=== PATIENT | female | born 1940 | race Caucasian/White ===

== ENCOUNTER 2018-11-24 11:21 | Inpatient (IN) | payer MEDICAID, MEDICARE ==
[~2018-11-24] VITALS: Ht 160 cm; Wt 63.9 kg
--- NOTE | 2018-11-24 15:06 | ERD ---
ER Documentation Chief Complaint Chief Complaint NAUSEA, VOMITING, DIARRHEA, PT HAD PET SCAN 3 DAYS AGO, HX OF BREAST CA HPI The patient is a 78-year-old female, presenting to the ER because of acute vomiting and diarrhea for 3 days, denies hematemesis/hematochezia, complains of vague abdominal pain, denies fever, chills, neck pain, chest pain, dyspnea. She does not smoke or drink she had a PET scan 3 days ago due to recently diagnosed with right breast carcinoma. She does not smoke or drink Past medical history: Left breast carcinoma, hypertension, diabetes mellitus Past surgical history: Left breast cyst, , cholecystectomy ROS All systems reviewed and are negative except as per history of present illness. Medications Home Meds Reported Medications Losartan Potassium* (Losartan Potassium*) 100 Mg Tablet, 100 MG PO DAILY, TAB 11/24/18 Metformin Hcl* (Metformin Hcl*) 850 Mg Tablet, 850 MG PO WITH BREAKFAST DINNE, #60 TAB 11/24/18 Allergies Allergies: Coded Allergies: No Known Allergy (Unverified , 11/24/18) Physical Exam Vitals Vital Signs Date Temp Pulse Resp B/P (MAP) Pulse Ox O2 O2 Flow FiO2 Time Delivery Rate 11/24/18 81 14 168/78 100 Room Air 18:50 (108) 11/24/18 83 16 179/86 100 Room Air 16:24 (117) 11/24/18 97.1 89 18 173/108 99 11:27 (129) Physical Exam Const: No acute distress.Dehydrated Head: Atraumatic. Eyes: Normal Conjunctiva. ENT: Normal External Ears, Nose and Mouth. Neck: Full range of motion. No meningismus. Resp: Clear to auscultation bilaterally. Cardio: Regular rate and rhythm. Abd: Soft, non distended, normal bowel sounds, non tender. Skin: No petechiae or rashes. Back: No midline or flank tenderness. Ext: No cyanosis, or edema. Neur: Awake and alert. No focal deficit Psych: Normal Mood and Affect. Result Diagram: 11/24/18 1548 11/24/18 1548 Results 24 hrs Laboratory Tests Test 11/24/18 15:48 11/24/18 16:26 White Blood Count 6.3 10^3/ul Red Blood Count 3.61 10^6/ul Hemoglobin 11.8 g/dl Hematocrit 32.2 % Mean Corpuscular Volume 89.2 fl Mean Corpuscular Hemoglobin 32.7 pg Mean Corpuscular Hemoglobin Concent 36.6 g/dl Red Cell Distribution Width 12.0 % Platelet Count 182 10^3/UL Mean Platelet Volume 9.5 fl Immature Granulocytes % 0.500 % Neutrophils % 83.9 % Lymphocytes % 10.0 % Monocytes % 5.6 % Eosinophils % 0.0 % Basophils % 0.0 % Nucleated Red Blood Cells % 0.0 /100WBC Immature Granulocytes # 0.030 10^3/ul Neutrophils # 5.3 10^3/ul Lymphocytes # 0.6 10^3/ul Monocytes # 0.4 10^3/ul Eosinophils # 0.0 10^3/ul Basophils # 0.0 10^3/ul Nucleated Red Blood Cells # 0.0 10^3/ul Sodium Level 117 mmol/L Potassium Level 5.3 mmol/L Chloride Level 86 mmol/L Carbon Dioxide Level 14 mmol/L Anion Gap 17 Blood Urea Nitrogen 55 mg/dl Creatinine 6.08 mg/dl Est Glomerular Filtrat Rate mL/min mL/min Glucose Level 262 mg/dl Calcium Level 8.6 mg/dl Total Bilirubin 0.2 mg/dl Direct Bilirubin 0.00 mg/dl Indirect Bilirubin 0.2 mg/dl Aspartate Amino Transf (AST/SGOT) 27 IU/L Alanine Aminotransferase (ALT/SGPT) 13 IU/L Alkaline Phosphatase 58 IU/L Total Protein 7.6 g/dl Albumin 3.9 g/dl Globulin 3.70 g/dl Albumin/Globulin Ratio 1.05 Lipase 598 U/L Bedside Urine pH (LAB) 6.0 Bedside Urine Protein (LAB) 3+ Bedside Urine Glucose (UA) 0.25% Bedside Urine Ketones (LAB) Negative Bedside Urine Blood Trace-lysed Bedside Urine Nitrite (LAB) Negative Bedside Urine Leukocyte Esterase (L Negative Current Medications Medications Dose Sig/Figueroa Start Time Status Last (Trade) Ordered Route PRN Stop Time Admin Dose Reason Admin Ondansetron 4 mg ONCE STAT 11/24/18 DC 11/24/18 HCl (Zofran IV 15:32 16:23 Inj) 11/24/18 15:36 Sodium 500 ml @ Q1H ONCE 11/24/18 DC 11/24/18 Chloride 500 mls/hr IV 17:00 16:55 2/11/19 17:59 Procedures/MDM MEDICAL MAKING DECISION: The patient is a 78-year-old female, presenting with acute vomiting and diarrhea, acute hyponatremia, acute kidney injury, acute hyperglycemia, anemia, acute hyperkalemia, acute dehydration. She was treated with Zofran formula IV for nausea, 500 normal saline IV for acute dehydration and acute hyponatremia with good response. The differential diagnoses considered include but are not limited to acute de hydration, acute electrolyte imbalance, acute pneumonia, SIADH, HHS, DKA Departure Diagnosis: Primary Impression: Hyponatremia Additional Impressions: Vomiting and diarrhea BELA (acute kidney injury) Hyperglycemia Hyperkalemia Dehydration Anemia Condition: Stable Comments I discussed the findings with the patient. I discussed the patient with the hospitalist Dr. Majano at 5:05 PM. who was made aware of the lab, the treatment, the patient condition. The patient is admitted to [facility] Disclaimer: Inadvertent spelling and grammatical errors are likely due to EHR/di ctation software use and do not reflect on the overall quality of patient care. Also, please note that the electronic time recorded on this note does not necessarily reflect the actual time of the patient encounter. KYLEIGH MOE MD Nov 24, 2018 15:06
[2018-11-24] MEDS ORDERED: ONDANSETRON 4 MG INJ IV STA (15:32)
[2018-11-24] MEDS ORDERED: METF850T13 PO (16:17)
[2018-11-24] MEDS ORDERED: LOSA100T15 PO (16:17)
[2018-11-24] MEDS ORDERED: SOD CHLORIDE 0.9% 500 ML IV ONE (17:00)
[2018-11-24] MEDS ORDERED: GLUCAGON 1 MG INJ IM PRN (20:00)
[2018-11-24] MEDS ORDERED: HYDROCODONE/APAP (5/325) TAB PO PRN (20:00)
[2018-11-24] MEDS ORDERED: GLUCOSE GEL 15 GRAM TUBE PO PRN ×2 (20:00)
[2018-11-24] MEDS ORDERED: GLUCOSE GEL 15 GRAM TUBE BUCCAL PRN (20:00)
[2018-11-24] MEDS ORDERED: ONDANSETRON 4 MG INJ IV PRN (20:00)
[2018-11-24] MEDS ORDERED: ACETAMINOPHEN 325 MG TAB PO PRN (20:00)
[2018-11-24] MEDS ORDERED: NACL 0.9% 3 ML SYG IV SCH (20:00)
[2018-11-24] MEDS ORDERED: DEXTROSE 50% 50 ML SYRINGE IV PRN ×2 (20:00)
[2018-11-24] MEDS: SOD CHLORIDE 0.9% 1,000 ML IV SCH (20:00)
--- NOTE | 2018-11-24 20:11 | HP ---
Date/Time of Note Date/Time of Note DATE: 11/24/18 TIME: 20:11 Assessment/Plan VTE Prophylaxis Pharmacological prophylaxis: other Lines/Catheters IV Catheter Type (from [facility]): Saline Lock Urinary Cath still in place: No Assessment/Plan Hospital Course Objective Physical exam General: Patient is laying in bed and answers questions appropriately Mentation: Patient is alert and oriented 4, Head: Normocephalic atraumatic Eyes: EOMI, pupils reactive to light Neck: Supple, nontender, midline Respiratory: Clear to auscultation bilaterally Cardiovascular: regular rate, no obvious murmurs Gastrointestinal: non-tender to palpation, bowel sounds heard. Neurological: Moves all extremities spontaneously Skin: Left breast mildly tender, postsurgical changes Assessment and plan Nausea, vomiting, diarrhea, associated abdominal pain -Likely secondary to chemotherapy medication as all symptoms began right after the injection -Most issues appear to have subsided -Fecal culture for diarrhea -No more abdominal pain however due to elevated lipase and questionable abdominal pain while she was throwing up in the past previous days, will get CT Hyponatremia -Secondary to above nausea, vomiting, diarrhea with decreased p.o. intake -Nephrology consulted -Fluid challenge with NS -Repeat labs soon Hyperkalemia -Mild elevation, likely secondary to renal dysfunction -Nephrology consulted Acute kidney injury versus chronic kidney disease -Patient and patient's family state that they do not know of any long-standing chronic kidney issues, patient likely has a acute renal failure due to volume depletion -Nephrology consulted -Fluid challenge with NS for now -crawford Elevated lipase -Very difficult to diagnose this is pancreatitis as patient does not have abdominal pain at this time -Likely secondary to other GI issues including acute severe intractable vomiting and nausea -Monitor for abdominal pain -CT pending Anemia -Mild, no signs of GI bleed Diabetes mellitus -Patient on home metformin, will do insulin sliding scale while here Hypertension -Hold patient's home losartan as this may exacerbate patient's BELA, Disposition -Most of patient's issues seem to be due secondary to vomit depletion secondary to chemotherapy nausea vomiting and diarrhea, will volume hydrate, nephrology has been consulted, Dr. Florez. Patient will start on clears and increase as tolerated. Result Diagram: 11/24/18 1548 11/24/18 1548 Results 24hrs Laboratory Tests Test 11/24/18 15:48 11/24/18 16:26 White Blood Count 6.3 Red Blood Count 3.61 L Hemoglobin 11.8 L Hematocrit 32.2 L Mean Corpuscular Volume 89.2 Mean Corpuscular Hemoglobin 32.7 Mean Corpuscular Hemoglobin Concent 36.6 Red Cell Distribution Width 12.0 Platelet Count 182 Mean Platelet Volume 9.5 Immature Granulocytes % 0.500 H Neutrophils % 83.9 H Lymphocytes % 10.0 L Monocytes % 5.6 Eosinophils % 0.0 Basophils % 0.0 Nucleated Red Blood Cells % 0.0 Immature Granulocytes # 0.030 Neutrophils # 5.3 Lymphocytes # 0.6 L Monocytes # 0.4 Eosinophils # 0.0 Basophils # 0.0 Nucleated Red Blood Cells # 0.0 Sodium Level 117 *L Potassium Level 5.3 H Chloride Level 86 L Carbon Dioxide Level 14 L Anion Gap 17 H Blood Urea Nitrogen 55 H Creatinine 6.08 H Est Glomerular Filtrat Rate mL/min Glucose Level 262 H Calcium Level 8.6 Total Bilirubin 0.2 Direct Bilirubin 0.00 Indirect Bilirubin 0.2 Aspartate Amino Transf (AST/SGOT) 27 Alanine Aminotransferase (ALT/SGPT) 13 Alkaline Phosphatase 58 Total Protein 7.6 Albumin 3.9 Globulin 3.70 H Albumin/Globulin Ratio 1.05 Lipase 598 H Bedside Urine pH (LAB) 6.0 Bedside Urine Protein (LAB) 3+ H Bedside Urine Glucose (UA) 0.25% H Bedside Urine Ketones (LAB) Negative Bedside Urine Blood Trace-lysed H Bedside Urine Nitrite (LAB) Negative Bedside Urine Leukocyte Esterase (L Negative HPI/ROS Admit Date/Time Admit Date/Time Hx of Present Illness Patient is a elderly female with past medical history significant for hypertension, diabetes mellitus, right breast carcinoma currently on chemotherapy who presented to [facility] for complaints of nausea vomiting and diarrhea. Patient recently received a shot of chemotherapy medication approximately 3 days ago and has subsequently developed an intractable nausea, vomiting, diarrhea type issue. Patient has not been able to tolerate p.o. very well due to these issues however it is appear to have subsided. Patient states that her last full urinary void was yesterday except for today when she produced a little bit for the laboratory, her last diarrhea was also yesterday. Her last nausea vomiting was also yesterday. Currently patient has no abdominal pain and stated that her abdomen is only painful when she is vomiting. Patient appears comfortable and states that she does not have any shortness of breath, chest pain, headache, nausea, vomiting, diarrhea at this time. Patient states that she does have chronic left breast pain due to her cancer and multiple surgeries in that area. PMH/Family/Social Past Medical History Medications Current Medications Sodium Chloride 1,000 ml @ 70 mls/hr [id number] IV Last administered on 11/24/18at 20:00; Admin Dose 70 MLS/HR; Start 11/24/18 at 19:44 IV Flush (NS 3 ml) 3 ml PER PROTOCOL IV ; Start 11/24/18 at 20:00 Ondansetron HCl (Zofran Inj) 4 mg Q6H PRN IV NAUSEA/VOMITING; Start 11/24/18 at 20:00 Acetaminophen (Tylenol Tab) 650 mg Q6H PRN PO .PAIN 1-3 OR TEMP; Start 11/24/18 at 20:00 Acetaminophen/ Hydrocodone Bitart ([place] (5/325)) 1 tab Q6H PRN PO .PAIN 4-6; Start 11/24/18 at 20:00 Famotidine (Pepcid Iv) 20 mg HS IV ; Start 11/24/18 at 21:00 Diagnostic Test (Pha) (Accu-Chek) 1 ea 02 XX ; Start 11/25/18 at 02:00 Insulin Aspart (Novolog Insulin Pen) NOVOLOG *MILD* ALGORITHM Q6 SC ; Start 11/25/18 at 00:00 Labetalol HCl (Labetalol) 10 mg Q4H PRN IV sbp >160; Start 11/24/18 at 20:00 Miscellaneous Information 1 ea NOTE XX ; Start 11/24/18 at 20:00 Glucose (Glutose) 15 gm Q15M PRN PO DECREASED GLUCOSE; Start 11/24/18 at 20:00 Glucose (Glutose) 22.5 gm Q15M PRN PO DECREASED GLUCOSE; Start 11/24/18 at 20:00 Dextrose (D50w Syringe) 25 ml Q15M PRN IV DECREASED GLUCOSE; Start 11/24/18 at 20:00 Dextrose (D50w Syringe) 50 ml Q15M PRN IV DECREASED GLUCOSE; Start 11/24/18 at 20:00 Glucagon (Glucagen) 1 mg Q15M PRN IM DECREASED GLUCOSE; Start 11/24/18 at 20:00 Glucose (Glutose) 15 gm Q15M PRN BUCCAL DECREASED GLUCOSE; Start 11/24/18 at 20:00 Coded Allergies: No Known Allergy (Unverified , 11/24/18) Social History Smoking Status: Never smoker Exam/Review of Systems Vital Signs Vitals Vital Signs Date Temp Pulse Resp B/P (MAP) Pulse Ox O2 O2 Flow FiO2 Time Delivery Rate 11/24/18 81 14 168/78 100 Room Air 18:50 (108) 11/24/18 97.1 11:27 RANDA PANDA Nov 24, 2018 20:11
[2018-11-24] MEDS ORDERED: FAMOTIDINE 20 MG INJ IV SCH (21:00)
[2018-11-24] MEDS ORDERED: HEPARIN 25000 UNITS/250 ML 250 ML IV SCH (22:00)
[2018-11-24] MEDS ORDERED: HEPARIN 1000 UNITS/ML 10 ML INJ IV PRN (22:00)
[2018-11-24] MEDS ORDERED: HEPARIN 1000 UNITS/ML 10 ML INJ IV ONE (22:00)
[2018-11-24 22:45] VITALS: BP 157/80; PULSE 75; RESP 16; Ht 160 cm; Wt 63.9 kg
[2018-11-24 22:48] VITALS: PULSE 77
[2018-11-24] MEDS ORDERED: ATORVASTATIN 80 MG TAB PO ONE (23:00)
[2018-11-24] MEDS ORDERED: ASPIRIN 81 MG TAB PO ONE (23:00)
[2018-11-25] VITALS (12 sets, daily range): BP systolic 147–166; BP diastolic 62–81; PULSE 64–82; RESP 16–18
[2018-11-25] MEDS ORDERED: SODIUM POLYSTYRENE 15 GM KIT (POWDER + SORBITOL) PO ONE (01:00)
[2018-11-25] MEDS: INSULIN ASPART [NOVOLOG] 3 ML PEN SC SCH ×5 (01:06→22:02)
[2018-11-25] MEDS: ACCU-CHEK XX SCH (02:00)
--- NOTE | 2018-11-25 08:58 | CONS ---
DATE OF ADMISSION: 11/24/2018 DATE OF CONSULTATION: 11/25/2018 TYPE OF CONSULTATION: Nephrology. REASON FOR CONSULTATION: Acute kidney injury and hypernatremia. PHYSICIAN REQUESTING CONSULT: Dr. Carrillo. HISTORY OF PRESENT ILLNESS: This is a 78-year-old female with a past medical history of chronic kidn ey disease, unknown baseline creatinine, history of hypertension, history of diabetes, history of rec ently diagnosed right breast carcinoma who presents [facility] with complaints o f nausea, vomiting, and diarrhea. The patient apparently was recently diagnosed with breast cancer, had a recent PET CT without unknown results. The patient did receive apparently chemotherapy approxi mately 3 days ago and nausea, vomiting, diarrhea. As a result, she came into the emergency room for evaluation. Upon arrival, the patient noted to have a sodium of 117, potassium 5.3, BUN 55, creatini ne 6.08. The patient in the emergency room was given IV fluids and admitted to telemetry for evaluat ion. The patient was also given Kayexalate as well as placed on heparin drip for elevated troponin. In terms of patient's renal history, I spoke with the patient's granddaughter, Concetta, who informed me that her grandmother, the patient, has had chronic kidney disease for many years, presumed to be due to her diabetes and hypertension. The patient previously was told in [place] that she may eventually need dialysis. The patient recently had a surgery and blood work done 2 to 3 weeks ago and was also performed of poor kidney function, but actual creatinine level and/or EGFR was not known to the [facility]. There have been no reports of any hemoptysis, hematemesis or hematochezia. The patient h as been feeling more confused lately as stated above. Please note, the patient did receive contrast study approximately 3 days ago per the patient's family for CT imaging. PAST MEDICAL HISTORY: History of hypertension, diabetes, history of chronic kidney disease, history of breast cancer. PAST SURGICAL HISTORY: Status post breast surgery. FAMILY HISTORY: No family history of kidney disease. SOCIAL HISTORY: She does not drink, smoke or do drugs. MEDICATIONS: The patient's medications have been reviewed. REVIEW OF SYSTEMS: Unable to do adequate review of systems. The patient is confused. Pertinent pos itives as stated in HPI, obtained by reviewing medical records, speaking to patient's family. PHYSICAL EXAMINATION: VITAL SIGNS: Blood pressure is 151/73, respirations 18, pulse 69, temperature 98.8. HEENT: Head is normocephalic. NECK: Supple. HEART: Regular rate. LUNGS: Show diminished breath sounds at the base. ABDOMEN: Soft, nontender to palpation without rebound or guarding. EXTREMITIES: Negative for clubbing, cyanosis, no edema. DERMATOLOGIC: No rashes. MUSCULOSKELETAL: No joint effusion. NEUROLOGIC: No. No focal deficits. LABORATORY DATA: Shows sodium 121, BUN 58, creatinine 6.90, magnesium 1.6. White count 5.9, hemoglo bin 10.5, platelet count 157. IMAGING STUDIES: The patient's renal ultrasound shows increased echogenicity consistent with medical renal disease, no hydronephrosis. CT scan of abdomen and pelvis shows increased attenuation within the gallbladder, abnormal changes, left breast parenchyma, renal atrophy and chest x-ray was reviewed . Urinalysis was reviewed, showed no hematuria, +2 proteinuria. ASSESSMENT AND PLAN: This is a 78-year-old female who presents with: 1. Oliguric acute kidney injury on top of chronic kidney disease with unknown baseline creatinine. Etiology of acute kidney injury is possibly multifactorial, possible contrast-associated nephropathy due to recent CT imaging, hemodynamics secondary to volume depletion from gastrointestinal losses, qu estionable nephrotoxicity from chemotherapy. The patient's renal ultrasound shows increased echogeni city consistent with chronic kidney disease. No renal obstruction. Urinalysis was reviewed, no evid ence of active sediment. Plan at this point is to continue the patient on IV hydration. We will mon itor I's and O's and renal function closely. The patient does have mild uremic signs and symptoms. Please note I did speak with the patient's family about the possibility of dialysis. They are trying to obtain PET scan and imaging studies to determine if the patient has metastatic disease in which c ase they may pursue comfort measures. We would otherwise continue current treatment plan, supportive care, renally dose all medicines. 2. Hypernatremia, etiology is secondary to acute kidney injury causing decreased free water urinary excretion. The patient will be placed on free water restriction, monitor sodium levels closely to en sure correction of no more than 6 to 8 mEq in a 24-hour period. 3. Metabolic acidosis secondary to acute kidney injury. Continue to monitor. May consider bicarbon ate therapy. 4. Anemia. Continue to monitor hemoglobin and hematocrit levels. 5. Mineral bone disorder, monitor calcium and phosphorus levels. 6. Hypomagnesemia. We will replete with magnesium sulfate. 7. Encephalopathy, likely due to underlying uremia. Continue to monitor. Continue to treat acute k idney injury as stated above. The patient may require dialysis. 8. Nausea, vomiting, and abdominal pain. Etiology may be secondary to chemotherapy versus uremia. Continue to monitor. Continue IV hydration. 9. Hyperkalemia secondary to acute kidney injury, improved. The patient is status post Kayexalate. Continue to monitor. 10. Elevated lipase, hyperlipasemia. This may be secondary to acute kidney injury. Continue to mon itor. CT scan was reviewed. 11. Diabetes. Continue current insulin regimen. 12. History of hypertension. Continue medical management. Thank you, Dr. Carrillo, for this interesting consult. It will be a pleasure to follow the patient with reji gusman throughout the hospital course. Dictated By: LYNNE RHODES DO NR/NTS Conf#: [id number] DID#: [id number] CC: OLIVE ALBRECHT MD; DOMINGO ARRIOLA MD;*EndCC*
[2018-11-25] MEDS ORDERED: ASPIRIN 81 MG TAB PO SCH (09:00)
[2018-11-25] MEDS: SOD CHLORIDE 0.9% 1,000 ML IV SCH ×2 (10:23→23:44)
--- NOTE | 2018-11-25 11:04 | PN ---
Date/Time of Note Date/Time of Note DATE: 11/25/18 TIME: 11:04 Assessment/Plan VTE Prophylaxis Risk score (from Nsg)>0 risk: 5 SCD applied (from Nsg): Yes Pharmacological prophylaxis: heparin Lines/Catheters IV Catheter Type (from Nrsg): Saline Lock Urinary Cath still in place: Yes Reason Cath still needed: other (indicate) Assessment/Plan Hospital Course SUBJECTIVE: Lying in bed, having loose bowel movements x3 today. No abdominal pain, vomiting. Having nausea. OBJECTIVE: Vital signs-see below PHYSICAL EXAM: Constitutional: Elderly female, lying in bed comfortably. Psych: nl mood/affect, no complaints Head: atraumatic, normocephalic Eyes: nl conjunctiva, nl sclera ENMT: mucosa pink and moist, nl external ears & nose Neck: non-tender, supple Respiratory: clear to auscultation, normal air movement Cardiovascular: nl pulses, regular rate and rhythm Gastrointestinal: non-tender, soft, bowel sounds active in all 4 quadrants. Musculoskeletal/extremities: nl extremities to inspection, motor strength equal bilaterally, no focal deficit. Normal pulses,no cyanosis, no edema. Neurological: Alert oriented 3,nl speech, nl strength Skin: +Left breast cancer. nl turgor ASSESSMENT/PLAN: 78-year-old female with recently diagnosed left breast cancer, scheduled for surgery with Dr. Bettencourt on Saturday, here with sudden onset of N/V/abd cramps/diarrhea since Saturday after she received a PET scan, found to have acute kidney injury. 1.N/V/Diarrhea-most likely toxic etiology with uremia -No further abdominal pain. -Continue fluid challenge -Potonix,PRN Zofran -Stool for studies 2. Acute kidney injury versus CKD -Patient received contrast for PET scan, likely culprit of acute kidney injury. -Management per nephrology, likely needing hemodialysis if renal function does not improve. 3. DMII -A1c noted -stable glycemic trends. -cont.insulin 4. 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 Anemia of chronic illness -Stable H&H, monitor 6. Left breast cancer -Patient is scheduled for surgical intervention on Saturday with Dr. Batista 7. Troponin leak, in light of BELA -Cardiology has been consulted. Patient with no chest pain, no EKG changes. Troponin trended down=> DC heparin drip and start subcu prophylaxis dose. -Continue aspirin/Statin prophylaxis. DVT prophylaxis: Subcu heparin PUD prophylaxis: Protonix CODE STATUS: Full code Diet: Clear diet. Disposition: Continue current management. Await for clinical improvement. Follow-up with nephrology recommendations. Patient was seen in collaboration w/ Result Diagram: 11/25/18 0337 11/25/18 0531 Results 24hrs Laboratory Tests Test 11/24/18 15:48 11/24/18 16:26 11/24/18 20:46 11/24/18 22:23 Sodium Level 117 *L Potassium Level 5.3 H Chloride Level 86 L Carbon Dioxide 14 L Level Anion Gap 17 H Blood Urea Nitrogen 55 H Creatinine 6.08 H Est Glomerular Filtrat Rate mL/min Glucose Level 262 H Calcium Level 8.6 Phosphorus Level 6.4 H Total Bilirubin 0.2 Direct Bilirubin 0.00 Indirect Bilirubin 0.2 Aspartate Amino 27 Transf (AST/SGOT) Alanine 13 Aminotransferase (A LT/SGPT) Alkaline 58 Phosphatase Total Protein 7.6 Albumin 3.9 Globulin 3.70 H Albumin/Globulin 1.05 Ratio Bedside Urine pH 6.0 (LAB) Bedside Urine 3+ H Protein (LAB) Bedside Urine 0.25% H Glucose (UA) Bedside Urine Negative Ketones (LAB) Bedside Urine Blood Trace-lysed H Bedside Urine Negative Nitrite (LAB) Bedside Urine Negative Leukocyte Esterase (L Troponin I 0.697 *H White Blood Count 5.9 Red Blood Count 3.21 L Hemoglobin 10.6 L Hematocrit 29.1 L Mean Corpuscular 90.7 Volume Mean Corpuscular 33.0 Hemoglobin Mean Corpuscular 36.4 Hemoglobin Concent Red Cell 12.1 Distribution Width Platelet Count 157 Mean Platelet 9.2 Volume Immature 0.300 Granulocytes % Neutrophils % 69.5 Lymphocytes % 19.0 Monocytes % 10.8 Eosinophils % 0.2 Basophils % 0.2 Nucleated Red Blood 0.0 Cells % Immature 0.020 Granulocytes # Neutrophils # 4.1 Lymphocytes # 1.1 Monocytes # 0.6 Eosinophils # 0.0 Basophils # 0.0 Nucleated Red Blood 0.0 Cells # Test 11/24/18 22:24 11/24/18 23:49 11/25/18 01:02 11/25/18 03:02 Prothrombin Time 12.9 Prothrombin Time 1.0 Ratio INR International 0.96 Normalized Ratio Activated 26.4 Partial Thromboplas t Time Sodium Level 118 *L Potassium Level 5.4 H Chloride Level 90 L Carbon Dioxide 16 L Level Anion Gap 12 Blood Urea Nitrogen 57 H Creatinine 5.94 H Est Glomerular Filtrat Rate mL/min Glucose Level 195 Calcium Level 8.4 Creatinine Kinase 2.65 H MB (Mass) Troponin I 0.619 *H Bedside Glucose 203 183 Test 11/25/18 03:15 11/25/18 03:37 11/25/18 04:45 11/25/18 05:25 Urine Color STRAW Urine Clarity CLEAR Urine pH 6.0 Urine Specific 1.006 [place] Urine Ketones NEGATIVE Urine Nitrite NEGATIVE Urine Bilirubin NEGATIVE Urine Urobilinogen NEGATIVE Urine Leukocyte NEGATIVE Esterase Urine Microscopic 1 RBC Urine Microscopic 1 WBC Urine Hemoglobin 2+ H Urine Random 25.41 Creatinine Urine Random Sodium 23 L Urine Glucose 2+ H Urine Total Protein 106.0 H Hemoglobin 10.5 L Hematocrit 28.5 L Hemoglobin A1c 10.1 H Stool Occult Blood NEGATIVE Triglycerides Level 222 H Cholesterol Level 206 H LDL Cholesterol, 116 Calculated HDL Cholesterol 46 Cholesterol/HDL 4.4 Ratio Test 11/25/18 05:31 11/25/18 05:36 Sodium Level 121 L Potassium Level 4.7 Chloride Level 93 L Carbon Dioxide 15 L Level Anion Gap 13 Blood Urea Nitrogen 58 H Creatinine 6.90 H Est Glomerular Filtrat Rate mL/min Glucose Level 141 # Calcium Level 8.3 L Magnesium Level 1.6 L Total Bilirubin 0.2 Direct Bilirubin 0.00 Indirect Bilirubin 0.2 Aspartate Amino 26 Transf (AST/SGOT) Alanine 10 L Aminotransferase (A LT/SGPT) Alkaline 51 Phosphatase Creatinine Kinase 2.80 H MB (Mass) Troponin I 0.506 *H Total Protein 6.7 Albumin 3.3 Globulin 3.40 H Albumin/Globulin 0.97 Ratio Lipase 377 H Bedside Glucose 173 Exam/Review of Systems Exam Vitals Vital Signs Date Temp Pulse Resp B/P (MAP) Pulse Ox O2 O2 Flow FiO2 Time Delivery Rate 11/25/18 64 08:01 11/25/18 98.8 18 151/73 99 07:21 (99) 11/24/18 Room Air 22:10 Intake and Output 11/24/18 11/24/18 11/25/18 1515:00 23:00 07:00 IntakeIntake Total 200 ml OutputOutput Total 200 ml BalanceBalance 0 ml Results Results 24hrs Laboratory Tests Test 11/24/18 15:48 11/24/18 16:26 11/24/18 20:46 11/24/18 22:23 Sodium Level 117 *L Potassium Level 5.3 H Chloride Level 86 L Carbon Dioxide 14 L Level Anion Gap 17 H Blood Urea Nitrogen 55 H Creatinine 6.08 H Est Glomerular Filtrat Rate mL/min Glucose Level 262 H Calcium Level 8.6 Phosphorus Level 6.4 H Total Bilirubin 0.2 Direct Bilirubin 0.00 Indirect Bilirubin 0.2 Aspartate Amino 27 Transf (AST/SGOT) Alanine 13 Aminotransferase (A LT/SGPT) Alkaline 58 Phosphatase Total Protein 7.6 Albumin 3.9 Globulin 3.70 H Albumin/Globulin 1.05 Ratio Bedside Urine pH 6.0 (LAB) Bedside Urine 3+ H Protein (LAB) Bedside Urine 0.25% H Glucose (UA) Bedside Urine Negative Ketones (LAB) Bedside Urine Blood Trace-lysed H Bedside Urine Negative Nitrite (LAB) Bedside Urine Negative Leukocyte Esterase (L Troponin I 0.697 *H White Blood Count 5.9 Red Blood Count 3.21 L Hemoglobin 10.6 L Hematocrit 29.1 L Mean Corpuscular 90.7 Volume Mean Corpuscular 33.0 Hemoglobin Mean Corpuscular 36.4 Hemoglobin Concent Red Cell 12.1 Distribution Width Platelet Count 157 Mean Platelet 9.2 Volume Immature 0.300 Granulocytes % Neutrophils % 69.5 Lymphocytes % 19.0 Monocytes % 10.8 Eosinophils % 0.2 Basophils % 0.2 Nucleated Red Blood 0.0 Cells % Immature 0.020 Granulocytes # Neutrophils # 4.1 Lymphocytes # 1.1 Monocytes # 0.6 Eosinophils # 0.0 Basophils # 0.0 Nucleated Red Blood 0.0 Cells # Test 11/24/18 22:24 11/24/18 23:49 11/25/18 01:02 11/25/18 03:02 Prothrombin Time 12.9 Prothrombin Time 1.0 Ratio INR International 0.96 Normalized Ratio Activated 26.4 Partial Thromboplas t Time Sodium Level 118 *L Potassium Level 5.4 H Chloride Level 90 L Carbon Dioxide 16 L Level Anion Gap 12 Blood Urea Nitrogen 57 H Creatinine 5.94 H Est Glomerular Filtrat Rate mL/min Glucose Level 195 Calcium Level 8.4 Creatinine Kinase 2.65 H MB (Mass) Troponin I 0.619 *H Bedside Glucose 203 183 Test 11/25/18 03:15 11/25/18 03:37 11/25/18 04:45 11/25/18 05:25 Urine Color STRAW Urine Clarity CLEAR Urine pH 6.0 Urine Specific 1.006 [place] Urine Ketones NEGATIVE Urine Nitrite NEGATIVE Urine Bilirubin NEGATIVE Urine Urobilinogen NEGATIVE Urine Leukocyte NEGATIVE Esterase Urine Microscopic 1 RBC Urine Microscopic 1 WBC Urine Hemoglobin 2+ H Urine Random 25.41 Creatinine Urine Random Sodium 23 L Urine Glucose 2+ H Urine Total Protein 106.0 H Hemoglobin 10.5 L Hematocrit 28.5 L Hemoglobin A1c 10.1 H Stool Occult Blood NEGATIVE Triglycerides Level 222 H Cholesterol Level 206 H LDL Cholesterol, 116 Calculated HDL Cholesterol 46 Cholesterol/HDL 4.4 Ratio Test 11/25/18 05:31 11/25/18 05:36 Sodium Level 121 L Potassium Level 4.7 Chloride Level 93 L Carbon Dioxide 15 L Level Anion Gap 13 Blood Urea Nitrogen 58 H Creatinine 6.90 H Est Glomerular Filtrat Rate mL/min Glucose Level 141 # Calcium Level 8.3 L Magnesium Level 1.6 L Total Bilirubin 0.2 Direct Bilirubin 0.00 Indirect Bilirubin 0.2 Aspartate Amino 26 Transf (AST/SGOT) Alanine 10 L Aminotransferase (A LT/SGPT) Alkaline 51 Phosphatase Creatinine Kinase 2.80 H MB (Mass) Troponin I 0.506 *H Total Protein 6.7 Albumin 3.3 Globulin 3.40 H Albumin/Globulin 0.97 Ratio Lipase 377 H Bedside Glucose 173 Medications Medication Current Medications Sodium Chloride 1,000 ml @ 70 mls/hr [id number] IV Last administered on 11/25/18at 10:23; Admin Dose 70 MLS/HR; Start 11/24/18 at 19:44 IV Flush (NS 3 ml) 3 ml PER PROTOCOL IV ; Start 11/24/18 at 20:00 Ondansetron HCl (Zofran Inj) 4 mg Q6H PRN IV NAUSEA/VOMITING; Start 11/24/18 at 20:00 Acetaminophen (Tylenol Tab) 650 mg Q6H PRN PO .PAIN 1-3 OR TEMP; Start 11/24/18 at 20:00 Acetaminophen/ Hydrocodone Bitart ([place] (5/325)) 1 tab Q6H PRN PO .PAIN 4-6; Start 11/24/18 at 20:00 Famotidine (Pepcid Iv) 20 mg HS IV Last administered on 11/24/18at 21:28; Admin Dose 20 MG; Start 11/24/18 at 21:00 Diagnostic Test (Pha) (Accu-Chek) 1 ea 02 XX Last administered on 11/25/18at 02:00; Admin Dose 1 EA; Start 11/25/18 at 02:00 Insulin Aspart (Novolog Insulin Pen) NOVOLOG *MILD* ALGORITHM Q6 SC Last administered on 11/25/18at 05:47; Admin Dose 1 UNIT; Start 11/25/18 at 00:00 Labetalol HCl (Labetalol) 10 mg Q4H PRN IV sbp >160; Start 11/24/18 at 20:00 Miscellaneous Information 1 ea NOTE XX ; Start 11/24/18 at 20:00 Glucose (Glutose) 15 gm Q15M PRN PO DECREASED GLUCOSE; Start 11/24/18 at 20:00 Glucose (Glutose) 22.5 gm Q15M PRN PO DECREASED GLUCOSE; Start 11/24/18 at 20: 00 Dextrose (D50w Syringe) 25 ml Q15M PRN IV DECREASED GLUCOSE; Start 11/24/18 at 20:00 Dextrose (D50w Syringe) 50 ml Q15M PRN IV DECREASED GLUCOSE; Start 11/24/18 at 20:00 Glucagon (Glucagen) 1 mg Q15M PRN IM DECREASED GLUCOSE; Start 11/24/18 at 20:00 Glucose (Glutose) 15 gm Q15M PRN BUCCAL DECREASED GLUCOSE; Start 11/24/18 at 20:00 Heparin Sodium (Porcine) (Heparin (1000 Units/ml)) 3,800 unit PER PROTOCOL PRN IV aPTT<47; Start 11/24/18 at 22:00 Heparin Sodium (Porcine) 250 ml @ 7.5 mls/hr PER PROTOCOL IV Last administered on 11/25/18at 00:59; Admin Dose 7.5 MLS/HR; Start 11/24/18 at 22:00; Status Hold Atorvastatin Calcium (Lipitor) 80 mg HS PO ; Start 11/25/18 at 21:00 Influenza Virus Vaccine Quadrival (Fluzone) 0.5 ml ONCE ONCE IM* ; Start 11/26/18 at 10:00; Stop 11/26/18 at 10:01 TENZIN ALVES NP Nov 25, 2018 11:04
[2018-11-25] MEDS: INSULIN GLARGINE [LANTus] (100 UNITS/ML) SYG SC SCH (12:13)
--- NOTE | 2018-11-25 12:54 | RADRPT ---
Echocardiogram Report Patient Name: PAULA JASSOPatient ID: [id number] : 1940 (78y 6m)Study Date: 11/25/2018 7:09:20 AM Gender: FAccession #: [id number] Tech: Liz Almendarez [facility] Location: 2 Ref.Physician: RANDA PANDA Height(Cm): BSA: Weight(Kg): Quality: AdequateAccount #: Procedures: Echocardiographic Report: Transthoracic echocardiogram with complete 2D, M-Mode, and doppler examination. Indications: Elevated troponin. Measurements: 2D/M Mode Doppler Measurement Value Normal Range Measurement Value Normal Range LVIDd 2D 4.1 [ 3.8 - 5.2 ] cm AV Peak Alexis 1.1 [ 100.0 - 170.0 ] cm/sec LVIDs 2D 2.9 [ 2.2 - 3.5 ] cm AV Peak PG 5.0 [ 2.0 - 9.0 ] mmHg LVPWd 2D 0.9 [ 0.6 - 0.9 ] cm LVOT Peak Alexis 0.7 [ 70.0 - 110.0 ] cm/sec IVSd 2D 0.9 [ 0.6 - 0.9 ] cm LVOT Peak PG 2.0 [ 2.0 - 6.0 ] mmHg AoR Diam 2D 2.6 [ 2.3 - 3.1 ] cm MV E Peak Alexis 0.8 [ 60.0 - 130.0 ] cm/sec EDV 2D 74.7 [ 46.0 - 106.0 ] ml MV A Peak Alexis 1.0 [ 100.0 - 120.0 ] cm/sec ESV 2D 31.4 [ 14.0 - 42.0 ] ml MV E/A 0.8 [ 0.8 - 1.5 ] ratio EF 2D 58.0 [ 54.0 - 74.0 ] percent MV Decel Time 303 [ 104 - 258 ] msec LA Dimen 2D 3.4 [ 2.7 - 3.8 ] cm Lat E` Alexis 0.0 [ 10.0 - 15.0 ] cm/sec Lateral E/E` 17.8 [ 1.0 - 2.0 ] ratio Med E` Alexis 0.0 cm/sec MV E/A 0.8 [ 0.8 - 1.5 ] ratio TR Peak Alexis 1.9 [ 100.0 - 280.0 ] cm/sec TR Peak PG 15.0 mmHg RVSP 25.0 [ 10.0 - 36.0 ] mmHg RA Pressure 10.0 mmHg Findings: Left Ventricle: Normal left ventricular systolic function. Normal left ventricular cavity size. Normal left ventricular wall thickness. Ejection fraction is visually estimated at 60 %. Tissue Doppler/Mitral Doppler indices are consistent with impaired relaxation (Stage I diastolic dysfunction). Right Ventricle: Normal right ventricular size. Normal right ventricular systolic function. Left Atrium: The left atrium is normal in size. Right Atrium: The right atrium is normal in size. Mitral Valve: Mild mitral annular calcification. Mild mitral valve regurgitation. Aortic Valve: No significant aortic stenosis or insufficiency. Aortic cusps appear mildly calcified. Tricuspid Valve: Normal appearance of the tricuspid valve. Estimated peak PA systolic pressure 25 mmHg. There is trace tricuspid regurgitation. Pulmonic Valve: Normal pulmonic valve appearance. Pericardium: Normal pericardium with no significant pericardial effusion. Aorta: Normal aortic root. IVC: Normal size and normal respiratory collapse consistent with normal right atrial pressure. Normal size and no respiratory collapse consistent with elevated right atrial pressure. Conclusions: Normal left ventricular systolic function. Normal left ventricular cavity size. Normal left ventricular wall thickness. Ejection fraction is visually estimated at 60 %. Tissue Doppler/Mitral Doppler indices are consistent with impaired relaxation (Stage I diastolic dysfunction). Mild mitral annular calcification. Mild mitral valve regurgitation. No significant aortic stenosis or insufficiency. Aortic cusps appear mildly calcified. Normal appearance of the tricuspid valve. Estimated peak PA systolic pressure 25 mmHg. There is trace tricuspid regurgitation. Electronically Signed By: Alcides Marinelli 2018-11-25 12:53:26 [facility]
[2018-11-25] MEDS: LABETALOL HCL 20MG INJ IV PRN ×2 (14:46→23:52)
--- NOTE | 2018-11-25 16:26 | CONS ---
Assessment/Plan Assessment/Plan Hospital Course (Demo Recall) 1. Mildly abnormal troponin with no chest pain consistent with most likely a false positive troponin secondary to renal failure 2. Renal failure probably acute on chronic details unclear 3. Breast cancer 4. Diabetes 5. Hypertension 6. Dehydration 7. Severe hyponatremia 8. Hyperkalemia Recommendations: Patient was given aspirin already. We will repeat the cardiac enzymes including total CK and CK-MB EKG will be checked as well Recommend continuation of medical therapy only. Follow-up with renal recommendation regarding an external abnormality renal failure Thank you for his referral. We will continue to follow along with you DOMINGO ARRIOLA MD [facility] Consultation Date/Type/Reason Admit Date/Time Date of Consultation: Nov 25, 2018 Type of Consult Cardiology Reason for Consultation abnormal trop Requesting Provider: DIMA PANDA MD Date/Time of Note DATE: 11/25/18 TIME: 16:19 Hx of Present Illness Interventional cardiology consultation note Chief complaint: Nausea vomiting Reason for consult: Abnormal troponin History of present illness: Thank you for this referral. History was obtained from the patient is a poor historian discussion with the staff and physicians review of the chart This is a 78-year-old female with a past medical history of chronic kidney d isease, unknown baseline creatinine, history of hypertension, history of diabetes, history of recently diagnosed breast carcinoma who presents to [facility] with complaints of nausea, vomiting, and diarrhea. The patient apparently was recently diagnosed with breast cancer, had a recent PET CT without unknown results. The patient did receive apparently chemotherapy approximately 3 days ago and nausea, vomiting, diarrhea. As a result, she came into the emergency room for evaluation. Upon arrival, the patient noted to have a sodium of 117, potassium 5.3, BUN 55, creatinine 6.08. Her troponin was also mildly elevated but she denies any left-sided chest pain or pressure to me. She does complain of pain in his breast however. PAST MEDICAL HISTORY: History of hypertension, diabetes, history of chronic kidney disease, history of breast cancer. PAST SURGICAL HISTORY: Status post breast surgery. FAMILY HISTORY: No family history of early coronary artery disease SOCIAL HISTORY: She does not drink, smoke or do drugs. MEDICATIONS: The patient's medications have been reviewed. Review of system: Patient denies all others except for above-mentioned Past Medical History Home Meds Reported Medications Losartan Potassium* (Losartan Potassium*) 100 Mg Tablet, 100 MG PO DAILY, TAB 11/24/18 Metformin Hcl* (Metformin Hcl*) 850 Mg Tablet, 850 MG PO WITH BREAKFAST DINNE, #60 TAB 11/24/18 Medications Current Medications Sodium Chloride 1,000 ml @ 70 mls/hr [id number] IV Last administered on 11/25/18at 10:23; Admin Dose 70 MLS/HR; Start 11/24/18 at 19:44 IV Flush (NS 3 ml) 3 ml PER PROTOCOL IV ; Start 11/24/18 at 20:00 Ondansetron HCl (Zofran Inj) 4 mg Q6H PRN IV NAUSEA/VOMITING; Start 11/24/18 at 20:00 Acetaminophen (Tylenol Tab) 650 mg Q6H PRN PO .PAIN 1-3 OR TEMP; Start 11/24/18 at 20:00 Acetaminophen/ Hydrocodone Bitart ([place] (5/325)) 1 tab Q6H PRN PO .PAIN 4-6; Start 11/24/18 at 20:00 Diagnostic Test (Pha) (Accu-Chek) 1 ea 02 XX Last administered on 11/25/18at 02:00; Admin Dose 1 EA; Start 11/25/18 at 02:00 Labetalol HCl (Labetalol) 10 mg Q4H PRN IV sbp >160 Last administered on 11/25/18at 14:46; Admin Dose 10 MG; Start 11/24/18 at 20:00 Miscellaneous Information 1 ea NOTE XX ; Start 11/24/18 at 20:00 Glucose (Glutose) 15 gm Q15M PRN PO DECREASED GLUCOSE; Start 11/24/18 at 20:00 Glucose (Glutose) 22.5 gm Q15M PRN PO DECREASED GLUCOSE; Start 11/24/18 at 20:00 Dextrose (D50w Syringe) 25 ml Q15M PRN IV DECREASED GLUCOSE; Start 11/24/18 at 20:00 Dextrose (D50w Syringe) 50 ml Q15M PRN IV DECREASED GLUCOSE; Start 11/24/18 at 20:00 Glucagon (Glucagen) 1 mg Q15M PRN IM DECREASED GLUCOSE; Start 11/24/18 at 20:00 Glucose (Glutose) 15 gm Q15M PRN BUCCAL DECREASED GLUCOSE; Start 11/24/18 at 20:00 Atorvastatin Calcium (Lipitor) 80 mg HS PO ; Start 11/25/18 at 21:00 Influenza Virus Vaccine Quadrival (Fluzone) 0.5 ml ONCE ONCE IM* ; Start 11/26/18 at 10:00; Stop 11/26/18 at 10:01 Heparin Sodium (Porcine) (Heparin (5000 Units/1ml)) 5,000 unit BID SC ; Start 11/25/18 at 21:00 Insulin Glargine (Lantus) 10 units DAILY@0800 SC Last administered on 11/25/18at 12:13; Admin Dose 10 UNITS; Start 11/25/18 at 11:00 Insulin Aspart (Novolog Insulin Pen) NOVOLOG *MILD* ALGORITHM WITH MEALS BEDTIME SC Last administered on 11/25/18at 12:13; Admin Dose 2 UNIT; Start 11/25/18 at 12:00 Pantoprazole (Protonix Iv) 40 mg BID@06,18 IV ; Start 11/25/18 at 18:00 Nystatin (Nystatin Powder) 1 applic QID TOP ; Start 11/25/18 at 17:00 Allergies: Coded Allergies: No Known Allergy (Unverified , 11/24/18) Social History Smoking Status: Never smoker Exam/Review of Systems Vital Signs Vitals Vital Signs Date Temp Pulse Resp B/P (MAP) Pulse Ox O2 O2 Flow FiO2 Time Delivery Rate 11/25/18 77 16:01 11/25/18 97.5 17 147/74 99 15:45 (98) 11/24/18 Room Air 22:10 Intake and Output 11/24/18 11/24/18 11/25/18 1515:00 23:00 07:00 IntakeIntake Total 200 ml OutputOutput Total 200 ml BalanceBalance 0 ml Exam Exam General: Elderly female. No acute distress HEENT: NC/AT. pupils are equal. round. NECK: NO JVD. no stridor. Breast: Positive for mass CV: RRR. systolic murmur; no gallop or rubs. PULM: no wheezing or rhonchi. GI: SOFT, NT, ND, no rebound or guarding Extremity: trace B/L LE edema. no clubbing. neuro: awake and alert, OX3. Psych: calm and pleasant rectal: deferred : normal Echocardiogram was personally reviewed which shows: Normal left ventricular systolic function. Normal left ventricular cavity size. Normal left ventricular wall thickness. Ejection fraction is visually estimated at 60 %. Tissue Doppler/Mitral Doppler indices are consistent with impaired relaxation (Stage I diastolic dysfunction). Mild mitral annular calcification. Mild mitral valve regurgitation. No significant aortic stenosis or insufficiency. Aortic cusps appear mildly calcified. Normal appearance of the tricuspid valve. Estimated peak PA systolic pressure 25 mmHg. There is trace tricuspid regurgitation. Labs Result Diagram: 11/25/18 0337 11/25/18 0531 Results 24hrs Laboratory Tests Test 11/24/18 16:26 11/24/18 20:46 11/24/18 22:23 11/24/18 22:24 Bedside Urine pH 6.0 (LAB) Bedside Urine 3+ H Protein (LAB) Bedside Urine 0.25% H Glucose (UA) Bedside Urine Negative Ketones (LAB) Bedside Urine Blood Trace-lysed H Bedside Urine Negative Nitrite (LAB) Bedside Urine Negative Leukocyte Esterase (L Troponin I 0.697 *H White Blood Count 5.9 Red Blood Count 3.21 L Hemoglobin 10.6 L Hematocrit 29.1 L Mean Corpuscular 90.7 Volume Mean Corpuscular 33.0 Hemoglobin Mean Corpuscular 36.4 Hemoglobin Concent Red Cell 12.1 Distribution Width Platelet Count 157 Mean Platelet 9.2 Volume Immature 0.300 Granulocytes % Neutrophils % 69.5 Lymphocytes % 19.0 Monocytes % 10.8 Eosinophils % 0.2 Basophils % 0.2 Nucleated Red Blood 0.0 Cells % Immature 0.020 Granulocytes # Neutrophils # 4.1 Lymphocytes # 1.1 Monocytes # 0.6 Eosinophils # 0.0 Basophils # 0.0 Nucleated Red Blood 0.0 Cells # Prothrombin Time 12.9 Prothrombin Time 1.0 Ratio INR International 0.96 Normalized Ratio Activated 26.4 Partial Thromboplas t Time Test 11/24/18 23:49 11/25/18 01:02 11/25/18 03:02 11/25/18 03:15 Sodium Level 118 *L Potassium Level 5.4 H Chloride Level 90 L Carbon Dioxide 16 L Level Anion Gap 12 Blood Urea Nitrogen 57 H Creatinine 5.94 H Est Glomerular Filtrat Rate mL/min Glucose Level 195 Calcium Level 8.4 Creatinine Kinase 2.65 H MB (Mass) Troponin I 0.619 *H Bedside Glucose 203 183 Urine Color STRAW Urine Clarity CLEAR Urine pH 6.0 Urine Specific 1.006 [place] Urine Ketones NEGATIVE Urine Nitrite NEGATIVE Urine Bilirubin NEGATIVE Urine Urobilinogen NEGATIVE Urine Leukocyte NEGATIVE Esterase Urine Microscopic 1 RBC Urine Microscopic 1 WBC Urine Hemoglobin 2+ H Urine Random 25.41 Creatinine Urine Random Sodium 23 L Urine Glucose 2+ H Urine Total Protein 106.0 H Test 11/25/18 03:37 11/25/18 04:45 11/25/18 05:25 11/25/18 05:31 Hemoglobin 10.5 L Hematocrit 28.5 L Hemoglobin A1c 10.1 H 10.0 H Stool Occult Blood NEGATIVE Triglycerides Level 222 H Cholesterol Level 206 H LDL Cholesterol, 116 Calculated HDL Cholesterol 46 Cholesterol/HDL 4.4 Ratio Sodium Level 121 L Potassium Level 4.7 Chloride Level 93 L Carbon Dioxide 15 L Level Anion Gap 13 Blood Urea Nitrogen 58 H Creatinine 6.90 H Est Glomerular Filtrat Rate mL/min Glucose Level 141 # Calcium Level 8.3 L Magnesium Level 1.6 L Total Bilirubin 0.2 Direct Bilirubin 0.00 Indirect Bilirubin 0.2 Aspartate Amino 26 Transf (AST/SGOT) Alanine 10 L Aminotransferase (A LT/SGPT) Alkaline 51 Phosphatase Creatinine Kinase 2.80 H MB (Mass) Troponin I 0.506 *H Total Protein 6.7 Albumin 3.3 Globulin 3.40 H Albumin/Globulin 0.97 Ratio Lipase 377 H Test 11/25/18 05:36 11/25/18 12:07 Bedside Glucose 173 184 Medications Medications Current Medications Sodium Chloride 1,000 ml @ 70 mls/hr [id number] IV Last administered on 11/25/18at 10:23; Admin Dose 70 MLS/HR; Start 11/24/18 at 19:44 IV Flush (NS 3 ml) 3 ml PER PROTOCOL IV ; Start 11/24/18 at 20:00 Ondansetron HCl (Zofran Inj) 4 mg Q6H PRN IV NAUSEA/VOMITING; Start 11/24/18 at 20:00 Acetaminophen (Tylenol Tab) 650 mg Q6H PRN PO .PAIN 1-3 OR TEMP; Start 11/24/18 at 20:00 Acetaminophen/ Hydrocodone Bitart ([place] (5/325)) 1 tab Q6H PRN PO .PAIN 4-6; Start 11/24/18 at 20:00 Diagnostic Test (Pha) (Accu-Chek) 1 ea 02 XX Last administered on 11/25/18at 02:00; Admin Dose 1 EA; Start 11/25/18 at 02:00 Labetalol HCl (Labetalol) 10 mg Q4H PRN IV sbp >160 Last administered on 11/25/18at 14:46; Admin Dose 10 MG; Start 11/24/18 at 20:00 Miscellaneous Information 1 ea NOTE XX ; Start 11/24/18 at 20:00 Glucose (Glutose) 15 gm Q15M PRN PO DECREASED GLUCOSE; Start 11/24/18 at 20:00 Glucose (Glutose) 22.5 gm Q15M PRN PO DECREASED GLUCOSE; Start 11/24/18 at 20:00 Dextrose (D50w Syringe) 25 ml Q15M PRN IV DECREASED GLUCOSE; Start 11/24/18 at 20:00 Dextrose (D50w Syringe) 50 ml Q15M PRN IV DECREASED GLUCOSE; Start 11/24/18 at 20:00 Glucagon (Glucagen) 1 mg Q15M PRN IM DECREASED GLUCOSE; Start 11/24/18 at 20:00 Glucose (Glutose) 15 gm Q15M PRN BUCCAL DECREASED GLUCOSE; Start 11/24/18 at 20:00 Atorvastatin Calcium (Lipitor) 80 mg HS PO ; Start 11/25/18 at 21:00 Influenza Virus Vaccine Quadrival (Fluzone) 0.5 ml ONCE ONCE IM* ; Start 11/26/18 at 10:00; Stop 11/26/18 at 10:01 Heparin Sodium (Porcine) (Heparin (5000 Units/1ml)) 5,000 unit BID SC ; Start 11/25/18 at 21:00 Insulin Glargine (Lantus) 10 units DAILY@0800 SC Last administered on 11/25/18at 12:13; Admin Dose 10 UNITS; Start 11/25/18 at 11:00 Insulin Aspart (Novolog Insulin Pen) NOVOLOG *MILD* ALGORITHM WITH MEALS BEDTIME SC Last administered on 11/25/18at 12:13; Admin Dose 2 UNIT; Start 11/25/18 at 12:00 Pantoprazole (Protonix Iv) 40 mg BID@06,18 IV ; Start 11/25/18 at 18:00 Nystatin (Nystatin Powder) 1 applic QID TOP ; Start 11/25/18 at 17:00 DOMINGO ARRIOLA MD Nov 25, 2018 16:26
[2018-11-25] MEDS ORDERED: NYSTATIN 30 GM POWDER BTL TOP SCH (17:00)
[2018-11-25] MEDS: PANTOPRAZOLE 40 MG INJ IV SCH (17:31)
[2018-11-25] MEDS ORDERED: ATORVASTATIN 80 MG TAB PO SCH (21:00)
[2018-11-25] MEDS: HEPARIN 5,000 UNIT/1 ML VIAL SC SCH (22:01)
[2018-11-25] MEDS ORDERED: MAGNESIUM OXIDE 400 MG TAB PO ONE (23:00)
[2018-11-26] VITALS (12 sets, daily range): BP systolic 128–168; BP diastolic 58–83; PULSE 73–86; RESP 17–19
[2018-11-26] MEDS ORDERED: hydrALAzine 20 MG INJ IV PRN (02:00)
[2018-11-26] MEDS ORDERED: traZODone 50 MG TAB PO PRN (02:00)
[2018-11-26] MEDS: ACCU-CHEK XX SCH (03:00)
[2018-11-26] MEDS: PANTOPRAZOLE 40 MG INJ IV SCH ×2 (05:34→17:11)
[2018-11-26] MEDS: INSULIN ASPART [NOVOLOG] 3 ML PEN SC SCH ×4 (07:58→21:00)
[2018-11-26] MEDS: HEPARIN 5,000 UNIT/1 ML VIAL SC SCH ×2 (08:01→21:31)
[2018-11-26] MEDS: INSULIN GLARGINE [LANTus] (100 UNITS/ML) SYG SC SCH (08:01)
--- NOTE | 2018-11-26 08:55 | CONS ---
Consult Date/Type/Reason Admit Date/Time Nov 24, 2018 at 17:46 Initial Consult Date 11/25/18 Requesting Provider: DIMA PANDA MD Date/Time of Note DATE: 11/26/18 TIME: 08:53 Subjective cv follow up S: d/w staff and tele was reviewed. pt remains in NSR. NO chest pain or pressure. O: General: Elderly female. No acute distress HEENT: NC/AT. pupils are equal. round. NECK: NO JVD. no stridor. Breast: Positive for mass CV: RRR. systolic murmur; no gallop or rubs. PULM: no wheezing or rhonchi. GI: SOFT, NT, ND, no rebound or guarding Extremity: trace B/L LE edema. no clubbing. neuro: awake and alert, OX3. Psych: calm and pleasant rectal: deferred : normal Echocardiogram was personally reviewed which shows: Normal left ventricular systolic function. Normal left ventricular cavity size. Normal left ventricular wall thickness. Ejection fraction is visually estimated at 60 %. Tissue Doppler/Mitral Doppler indices are consistent with impaired relaxation (Stage I diastolic dysfunction). Mild mitral annular calcification. Mild mitral valve regurgitation. No significant aortic stenosis or insufficiency. Aortic cusps appear mildly calcified. Normal appearance of the tricuspid valve. Estimated peak PA systolic pressure 25 mmHg. There is trace tricuspid regurgitation. Objective Vitals Vital Signs Date Temp Pulse Resp B/P (MAP) Pulse Ox O2 O2 Flow FiO2 Time Delivery Rate 11/26/18 74 08:20 11/26/18 98.0 18 138/65 97 07:32 (89) 11/24/18 Room Air 22:10 Intake and Output 11/25/18 11/25/18 11/26/18 1515:00 23:00 07:00 IntakeIntake Total 1770 ml 870 ml OutputOutput Total 1700 ml 3400 ml BalanceBalance 70 ml -2530 ml Results/Medications Result Diagram: 11/26/18 0449 11/26/18 0445 Results 24 hrs Laboratory Tests Test 11/25/18 12:07 11/25/18 17:20 11/25/18 21:56 11/26/18 02:59 Bedside Glucose 184 160 214 148 Test 11/26/18 04:45 11/26/18 04:49 11/26/18 07:57 Sodium Level 122 L Potassium Level 3.7 Chloride Level 88 L Carbon Dioxide Level 14 L Anion Gap 20 #H Blood Urea Nitrogen 55 H Creatinine 6.84 H Est Glomerular Filtrat Rate mL/min Glucose Level 101 # Calcium Level 7.7 L Phosphorus Level 9.1 #H Magnesium Level 1.4 L Creatine Kinase 109 Creatine Kinase 2.2 Index Creatinine Kinase MB 2.37 (Mass) Troponin I 0.137 *H White Blood Count 6.8 Red Blood Count 3.06 L Hemoglobin 10.0 L Hematocrit 27.5 L Mean Corpuscular 89.9 Volume Mean Corpuscular 32.7 Hemoglobin Mean Corpuscular 36.4 Hemoglobin Concent Red Cell 12.4 Distribution Width Platelet Count 147 Mean Platelet Volume 10.0 Immature 0.300 Granulocytes % Neutrophils % 68.4 Lymphocytes % 20.1 Monocytes % 10.2 Eosinophils % 0.9 Basophils % 0.1 Nucleated Red Blood 0.0 Cells % Immature 0.020 Granulocytes # Neutrophils # 4.6 Lymphocytes # 1.4 Monocytes # 0.7 Eosinophils # 0.1 Basophils # 0.0 Nucleated Red Blood 0.0 Cells # Bedside Glucose 136 Home Meds Reported Medications Losartan Potassium* (Losartan Potassium*) 100 Mg Tablet, 100 MG PO DAILY, TAB 11/24/18 Metformin Hcl* (Metformin Hcl*) 850 Mg Tablet, 850 MG PO WITH BREAKFAST DINNE, #60 TAB 11/24/18 Medications Current Medications Sodium Chloride 1,000 ml @ 70 mls/hr [id number] IV Last administered on 11/25/18at 23:44; Admin Dose 70 MLS/HR; Start 11/24/18 at 19:44 IV Flush (NS 3 ml) 3 ml PER PROTOCOL IV ; Start 11/24/18 at 20:00 Ondansetron HCl (Zofran Inj) 4 mg Q6H PRN IV NAUSEA/VOMITING; Start 11/24/18 at 20:00 Acetaminophen (Tylenol Tab) 650 mg Q6H PRN PO .PAIN 1-3 OR TEMP; Start 11/24/18 at 20:00 Acetaminophen/ Hydrocodone Bitart ([place] (5/325)) 1 tab Q6H PRN PO .PAIN 4-6; Start 11/24/18 at 20:00 Diagnostic Test (Pha) (Accu-Chek) 1 ea 02 XX Last administered on 11/26/18at 03:00; Admin Dose 1 EA; Start 11/25/18 at 02:00 Labetalol HCl (Labetalol) 10 mg Q4H PRN IV sbp >160 Last administered on 11/25/18at 23:52; Admin Dose 10 MG; Start 11/24/18 at 20:00 Miscellaneous Information 1 ea NOTE XX ; Start 11/24/18 at 20:00 Glucose (Glutose) 15 gm Q15M PRN PO DECREASED GLUCOSE; Start 11/24/18 at 20:00 Glucose (Glutose) 22.5 gm Q15M PRN PO DECREASED GLUCOSE; Start 11/24/18 at 20:00 Dextrose (D50w Syringe) 25 ml Q15M PRN IV DECREASED GLUCOSE; Start 11/24/18 at 20:00 Dextrose (D50w Syringe) 50 ml Q15M PRN IV DECREASED GLUCOSE; Start 11/24/18 at 20:00 Glucagon (Glucagen) 1 mg Q15M PRN IM DECREASED GLUCOSE; Start 11/24/18 at 20:00 Glucose (Glutose) 15 gm Q15M PRN BUCCAL DECREASED GLUCOSE; Start 11/24/18 at 20:00 Atorvastatin Calcium (Lipitor) 80 mg HS PO Last administered on 11/25/18at 22:11; Admin Dose 80 MG; Start 11/25/18 at 21:00 Influenza Virus Vaccine Quadrival (Fluzone) 0.5 ml ONCE ONCE IM* ; Start 11/26/18 at 10:00; Stop 11/26/18 at 10:01 Heparin Sodium (Porcine) (Heparin (5000 Units/1ml)) 5,000 unit BID SC Last administered on 11/26/18at 08:01; Admin Dose 5,000 UNIT; Start 11/25/18 at 21:00 Insulin Glargine (Lantus) 10 units DAILY@0800 SC Last administered on 11/26/18at 08:01; Admin Dose 10 UNITS; Start 11/25/18 at 11:00 Insulin Aspart (Novolog Insulin Pen) NOVOLOG *MILD* ALGORITHM WITH MEALS BEDTIME SC Last administered on 11/25/18at 22:02; Admin Dose 1 UNIT; Start 11/25/18 at 12:00 Pantoprazole (Protonix Iv) 40 mg BID@06,18 IV Last administered on 11/26/18at 05:34; Admin Dose 40 MG; Start 11/25/18 at 18:00 Hydralazine HCl (Apresoline) 10 mg Q4H PRN IV sbp >160; Start 11/26/18 at 02:00 Trazodone HCl (Desyrel) 50 mg HS PRN PO insomnia Last administered on 11/26/18at 03:23; Admin Dose 50 MG; Start 11/26/18 at 02:00 Sevelamer Carbonate (Renvela) 1,600 mg WITH MEALS PO ; Start 11/26/18 at 12:00; Status UNV Magnesium Sulfate/ Dextrose 100 ml @ 100 mls/hr ONCE ONCE IVPB ; Start 11/26/18 at 08:30; Stop 11/26/18 at 09:29; Status UNV Assessment/Plan Hospital Course (Demo Recall) 1. Mildly abnormal troponin with no chest pain consistent with most likely a false positive troponin secondary to renal failure 2. Renal failure probably acute on chronic details unclear 3. Breast cancer 4. Diabetes 5. Hypertension 6. Dehydration 7. Severe hyponatremia 8. Hyperkalemia Recommendations: Patient was given aspirin already. We will repeat the cardiac enzymes including total CK and CK-MB EKG will be checked as well Recommend continuation of medical therapy only. Follow-up with renal recommendation regarding an external abnormality renal failure Thank you for his referral. We will continue to follow along with you DOMINGO ARRIOLA MD [facility] DOMINGO ARRIOLA MD Nov 26, 2018 08:55
--- NOTE | 2018-11-26 09:21 | PN ---
DATE: 11/26/2018 SUBJECTIVE: The patient is lethargic. No acute events overnight. No hemoptysis, hematemesis, hemat ochezia. The patient had excellent urinary output. OBJECTIVE: VITAL SIGNS: Blood pressure is 138/65, respiration 18, pulse 73, temperature 98.0. HEENT: Head is normocephalic. NECK: Supple. HEART: Regular rate. LUNGS: Show diminished breath sounds at the base. ABDOMEN: Soft, nontender to palpation. No rebound or guarding. EXTREMITIES: Negative for clubbing, cyanosis, no edema. DERMATOLOGIC: No rashes. MUSCULOSKELETAL: No joint effusion. NEUROLOGIC: No change in exam. MEDICATIONS: The patient's medications have been reviewed. LABORATORY DATA: Shows a sodium of 122, potassium 3.7, chloride 88, bicarbonate 14, BUN 55, creatini ne 6.84, calcium 7.7, phosphorus 9.1, magnesium is 1.4, . Patient's renal ultrasound shows incr eased echogenicity consistent with chronic kidney disease. ASSESSMENT AND PLAN: 1. Nonoliguric acute kidney disease on top of chronic kidney disease with unknown baseline creatinin e. Etiology of acute kidney injury is possibly multifactorial secondary to possible contrast-associa kari nephropathy due to recent CT imaging, possible nephrotoxicity from chemotherapy, possibly hemodyn amics. The patient's urinary output has improved in the last 24 hours with IV fluids. However, and the patient's creatinine remained stable. I attempted to contact the patient's previous physician to obtain old medical records; however, was unsuccessful. We will attempt again to try to ascertain moisés valdez renal function. Please note I did speak with the patient's family about the possibility of di alysis. At this point they are awaiting outpatient imaging to determine if patient has metastatic di sease in which case they may pursue comfort measures. We will continue to monitor renal function jennifer sely. Continue supportive care, renally dose all meds. 2. Hyponatremia. Etiology secondary to acute kidney injury causing decreased urinary free water exc retion. The patient's sodium levels have slowly improved. Continue to monitor closely, limit free w ater intake. 3. Metabolic acidosis secondary to acute kidney injury. We will check an ABG to see if the patient is compensated. Will consider bicarbonate drip. 4. Anemia. Monitor hemoglobin and hematocrit levels. 5. Mineral bone disorder. The patient is hypophosphatemic secondary to acute kidney injury. Will s tart patient on phosphate binders. 6. Hypomagnesemia. Continue to monitor and replete. 7. Encephalopathy, likely due to underlying uremia. Continue to monitor. Continue to treat acute k idney injury as stated above. The patient may require dialysis. 8. Nausea, vomiting, abdominal pain possibly from chemotherapy, uremia. Continue to monitor. 9. Hypokalemia, improved, status post Kayexalate. 10. Elevated lipase. Continue to monitor. 11. Diabetes. Continue current insulin regimen. 12. Elevated troponin. Continue to monitor. Follow up with cardiology. Dictated By: LYNNE RHODES DO NR/NTS Conf#: [id number] DID#: [id number] CC: OLIVE ALBRECHT MD;*EndCC*
[2018-11-26] MEDS ORDERED: MAGNESIUM SULFATE 1 GM/D5W 100 ML IVPB ONE (09:30)
[2018-11-26] MEDS ORDERED: INFLUENZA VIRUS VACCINE 0.5 ML (DISPENSING) IM* ONE (10:00)
--- NOTE | 2018-11-26 10:14 | PN ---
Date/Time of Note Date/Time of Note DATE: 11/26/18 TIME: 10:12 Assessment/Plan VTE Prophylaxis Risk score (from Nsg)>0 risk: 8 SCD applied (from Nsg): Yes Pharmacological prophylaxis: heparin Lines/Catheters IV Catheter Type (from Nrsg): Peripheral IV Urinary Cath still in place: Yes Reason Cath still needed: other (indicate) Assessment/Plan Hospital Course SUBJECTIVE: No acute episodes. Tolerated clear diet. OBJECTIVE: Vital signs-see below PHYSICAL EXAM: Constitutional: Elderly female, lying in bed comfortably. Psych: nl mood/affect, no complaints Head: atraumatic, normocephalic Eyes: nl conjunctiva, nl sclera ENMT: mucosa pink and moist, nl external ears & nose Neck: non-tender, supple Respiratory: clear to auscultation, normal air movement Cardiovascular: nl pulses, regular rate and rhythm Gastrointestinal: non-tender, soft, bowel sounds active in all 4 quadrants. Musculoskeletal/extremities: nl extremities to inspection, motor strength equal bilaterally, no focal deficit. Normal pulses,no cyanosis, no edema. Neurological: Alert oriented 3,nl speech, nl strength Skin: +Left breast cancer. nl turgor ASSESSMENT/PLAN: 78-year-old female with recently diagnosed left breast cancer, scheduled for surgery with Dr. Bettencourt on Saturday, here with sudden onset of N/V/abd cramps/diarrhea since Saturday after she received a PET scan, found to have acute kidney injury. 1.N/V/Diarrhea-most likely toxic etiology with uremia -Symptoms resolving. Advance diet to full liquid. -Continue Potonix,PRN Zofran -Follow-up stool for studies 2. Acute kidney injury versus CKD -Patient received contrast for PET scan, likely culprit of acute kidney injury -Management per nephrology, likely needing hemodialysis if renal function does not improve. -DC ARB (oupt regimen) 3. DMII -A1c noted -stable glycemic trends. -cont.insulin 4. 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 Anemia of chronic illness -Stable H&H, monitor 6. Left breast cancer -Apparently patient was scheduled for surgical intervention on Saturday with Dr. Batista pending PET/MRI studies.PET study did not reveal any metastasis. 7. Troponin leak, in light of BELA -No chest pain -Troponin trended down. Cardiology recommended medical management. -Continue aspirin/Statin prophylaxis. 8. Hypercholesteremia -On statin. 9. Hypertension -Hold losartan secondary to acute kidney injury. Will start patient on Procardia XL. DVT prophylaxis: Subcu heparin PUD prophylaxis: Protonix CODE STATUS: Full code Diet: Clear diet. Disposition: Continue current management. Await for clinical improvement. Follow-up with nephrology recommendations. Patient was seen in collaboration w/ Result Diagram: 11/26/18 0449 11/26/18 0445 Results 24hrs Laboratory Tests Test 11/25/18 12:07 11/25/18 17:20 11/25/18 21:56 11/26/18 02:59 Bedside Glucose 184 160 214 148 Test 11/26/18 04:45 11/26/18 04:49 11/26/18 07:57 11/26/18 08:15 Sodium Level 122 L Potassium Level 3.7 Chloride Level 88 L Carbon Dioxide 14 L Level Anion Gap 20 #H Blood Urea 55 H Nitrogen Creatinine 6.84 H Est Glomerular Filtrat Rate mL/min Glucose Level 101 # Calcium Level 7.7 L Phosphorus Level 9.1 #H Magnesium Level 1.4 L Creatine Kinase 109 Creatine Kinase 2.2 Index Creatinine Kinase 2.37 MB (Mass) Troponin I 0.137 *H White Blood Count 6.8 Red Blood Count 3.06 L Hemoglobin 10.0 L Hematocrit 27.5 L Mean Corpuscular 89.9 Volume Mean Corpuscular 32.7 Hemoglobin Mean Corpuscular 36.4 Hemoglobin Concen t Red Cell 12.4 Distribution Width Platelet Count 147 Mean Platelet 10.0 Volume Immature 0.300 Granulocytes % Neutrophils % 68.4 Lymphocytes % 20.1 Monocytes % 10.2 Eosinophils % 0.9 Basophils % 0.1 Nucleated Red 0.0 Blood Cells % Immature 0.020 Granulocytes # Neutrophils # 4.6 Lymphocytes # 1.4 Monocytes # 0.7 Eosinophils # 0.1 Basophils # 0.0 Nucleated Red 0.0 Blood Cells # Bedside Glucose 136 Blood Gas Blood arterial Specimen Source Arterial Blood 11/26/2018 9:21:2 Date Drawn 0 AM Arterial Blood pH 7.383 (Temp corrected) Arterial Blood 26.6 L pCO2 (Temp correct) Arterial Blood 92.2 H pO2 (Temp corrected) Arterial Blood 15.5 L HCO3 Arterial Blood -8.3 L Base Excess Arterial Blood 96.1 Oxygen Saturation David Test ACCEPTAB Arterial Blood Right Radial Gas Puncture Site Arterial 0.3 Blood Carboxyhemo globin Arterial Blood 0.2 Methemoglobin Blood Gas A-a O2 25.7 H Differential Oxyhemoglobin 95.6 Percent Blood Gas 37.0 Temperature Blood Gas ROOM AIR Modality FiO2 21.0 Blood Gas TM Notified Whom Blood Gas 11/26/2018 9:33:4 Notified Time 4 AM Exam/Review of Systems Exam Vitals Vital Signs Date Temp Pulse Resp B/P (MAP) Pulse Ox O2 O2 Flow FiO2 Time Delivery Rate 11/26/18 74 08:20 11/26/18 98.0 18 138/65 97 07:32 (89) 11/24/18 Room Air 22:10 Intake and Output 11/25/18 11/25/18 11/26/18 1515:00 23:00 07:00 IntakeIntake Total 1770 ml 870 ml OutputOutput Total 1700 ml 3400 ml BalanceBalance 70 ml -2530 ml Results Results 24hrs Laboratory Tests Test 11/25/18 12:07 11/25/18 17:20 11/25/18 21:56 11/26/18 02:59 Bedside Glucose 184 160 214 148 Test 11/26/18 04:45 11/26/18 04:49 11/26/18 07:57 11/26/18 08:15 Sodium Level 122 L Potassium Level 3.7 Chloride Level 88 L Carbon Dioxide 14 L Level Anion Gap 20 #H Blood Urea 55 H Nitrogen Creatinine 6.84 H Est Glomerular Filtrat Rate mL/min Glucose Level 101 # Calcium Level 7.7 L Phosphorus Level 9.1 #H Magnesium Level 1.4 L Creatine Kinase 109 Creatine Kinase 2.2 Index Creatinine Kinase 2.37 MB (Mass) Troponin I 0.137 *H White Blood Count 6.8 Red Blood Count 3.06 L Hemoglobin 10.0 L Hematocrit 27.5 L Mean Corpuscular 89.9 Volume Mean Corpuscular 32.7 Hemoglobin Mean Corpuscular 36.4 Hemoglobin Concen t Red Cell 12.4 Distribution Width Platelet Count 147 Mean Platelet 10.0 Volume Immature 0.300 Granulocytes % Neutrophils % 68.4 Lymphocytes % 20.1 Monocytes % 10.2 Eosinophils % 0.9 Basophils % 0.1 Nucleated Red 0.0 Blood Cells % Immature 0.020 Granulocytes # Neutrophils # 4.6 Lymphocytes # 1.4 Monocytes # 0.7 Eosinophils # 0.1 Basophils # 0.0 Nucleated Red 0.0 Blood Cells # Bedside Glucose 136 Blood Gas Blood arterial Specimen Source Arterial Blood 11/26/2018 9:21:2 Date Drawn 0 AM Arterial Blood pH 7.383 (Temp corrected) Arterial Blood 26.6 L pCO2 (Temp correct) Arterial Blood 92.2 H pO2 (Temp corrected) Arterial Blood 15.5 L HCO3 Arterial Blood -8.3 L Base Excess Arterial Blood 96.1 Oxygen Saturation David Test ACCEPTAB Arterial Blood Right Radial Gas Puncture Site Arterial 0.3 Blood Carboxyhemo globin Arterial Blood 0.2 Methemoglobin Blood Gas A-a O2 25.7 H Differential Oxyhemoglobin 95.6 Percent Blood Gas 37.0 Temperature Blood Gas ROOM AIR Modality FiO2 21.0 Blood Gas TM Notified Whom Blood Gas 11/26/2018 9:33:4 Notified Time 4 AM Medications Medication Current Medications Sodium Chloride 1,000 ml @ 70 mls/hr [id number] IV Last administered on 11/25/18at 23:44; Admin Dose 70 MLS/HR; Start 11/24/18 at 19:44 IV Flush (NS 3 ml) 3 ml PER PROTOCOL IV ; Start 11/24/18 at 20:00 Ondansetron HCl (Zofran Inj) 4 mg Q6H PRN IV NAUSEA/VOMITING; Start 11/24/18 at 20:00 Acetaminophen (Tylenol Tab) 650 mg Q6H PRN PO .PAIN 1-3 OR TEMP; Start 11/24/18 at 20:00 Acetaminophen/ Hydrocodone Bitart ([place] (5/325)) 1 tab Q6H PRN PO .PAIN 4-6; Start 11/24/18 at 20:00 Diagnostic Test (Pha) (Accu-Chek) 1 ea 02 XX Last administered on 11/26/18at 03:00; Admin Dose 1 EA; Start 11/25/18 at 02:00 Labetalol HCl (Labetalol) 10 mg Q4H PRN IV sbp >160 Last administered on 11/25/18at 23:52; Admin Dose 10 MG; Start 11/24/18 at 20:00 Miscellaneous Information 1 ea NOTE XX ; Start 11/24/18 at 20:00 Glucose (Glutose) 15 gm Q15M PRN PO DECREASED GLUCOSE; Start 11/24/18 at 20:00 Glucose (Glutose) 22.5 gm Q15M PRN PO DECREASED GLUCOSE; Start 11/24/18 at 20:00 Dextrose (D50w Syringe) 25 ml Q15M PRN IV DECREASED GLUCOSE; Start 11/24/18 at 20:00 Dextrose (D50w Syringe) 50 ml Q15M PRN IV DECREASED GLUCOSE; Start 11/24/18 at 20:00 Glucagon (Glucagen) 1 mg Q15M PRN IM DECREASED GLUCOSE; Start 11/24/18 at 20:00 Glucose (Glutose) 15 gm Q15M PRN BUCCAL DECREASED GLUCOSE; Start 11/24/18 at 20:00 Atorvastatin Calcium (Lipitor) 80 mg HS PO Last administered on 11/25/18at 22:11; Admin Dose 80 MG; Start 11/25/18 at 21:00 Heparin Sodium (Porcine) (Heparin (5000 Units/1ml)) 5,000 unit BID SC Last administered on 11/26/18at 08:01; Admin Dose 5,000 UNIT; Start 11/25/18 at 21:00 Insulin Glargine (Lantus) 10 units DAILY@0800 SC Last administered on 11/26/18at 08:01; Admin Dose 10 UNITS; Start 11/25/18 at 11:00 Insulin Aspart (Novolog Insulin Pen) NOVOLOG *MILD* ALGORITHM WITH MEALS BEDTIME SC Last administered on 11/25/18at 22:02; Admin Dose 1 UNIT; Start 11/25/18 at 12:00 Pantoprazole (Protonix Iv) 40 mg BID@06,18 IV Last administered on 11/26/18at 05:34; Admin Dose 40 MG; Start 11/25/18 at 18:00 Hydralazine HCl (Apresoline) 10 mg Q4H PRN IV sbp >160; Start 11/26/18 at 02:00 Trazodone HCl (Desyrel) 50 mg HS PRN PO insomnia Last administered on 11/26/18at 03:23; Admin Dose 50 MG; Start 11/26/18 at 02:00 Sevelamer Carbonate (Renvela) 1,600 mg WITH MEALS PO ; Start 11/26/18 at 12:00 Magnesium Sulfate/ Dextrose 100 ml @ 100 mls/hr ONCE ONCE IVPB ; Start 11/26/18 at 09:30; Stop 11/26/18 at 10:29 TENZIN ALVES NP Nov 26, 2018 10:14
[2018-11-26] MEDS: NIFEdipine (XL) 30 MG TAB PO SCH ×2 (11:34→21:35)
[2018-11-26] MEDS: SEVELAMER CARBONATE 800 MG TABLET PO SCH ×2 (12:03→17:11)
[2018-11-26] MEDS: SOD CHLORIDE 0.9% 1,000 ML IV SCH (14:38)
[2018-11-26] MEDS: ATORVASTATIN 80 MG TAB PO SCH (21:34)
[2018-11-27] VITALS (21 sets, daily range): BP systolic 99–147; BP diastolic 53–83; PULSE 72–83; RESP 18–20
[2018-11-27] MEDS: ACCU-CHEK XX SCH (02:00)
[2018-11-27] MEDS: PANTOPRAZOLE 40 MG INJ IV SCH (05:09)
[2018-11-27] MEDS: SOD CHLORIDE 0.9% 1,000 ML IV SCH ×2 (05:09→21:20)
[2018-11-27] MEDS: SEVELAMER CARBONATE 800 MG TABLET PO SCH ×3 (07:44→17:14)
[2018-11-27] MEDS: INSULIN ASPART [NOVOLOG] 3 ML PEN SC SCH ×4 (07:47→20:40)
[2018-11-27] MEDS: INSULIN GLARGINE [LANTus] (100 UNITS/ML) SYG SC SCH (07:49)
[2018-11-27] MEDS ORDERED: POTASSIUM CHLORIDE (SR) 20 MEQ TAB PO STA (08:30)
[2018-11-27] MEDS: NIFEdipine (XL) 30 MG TAB PO SCH ×2 (08:53→20:40)
[2018-11-27] MEDS: HEPARIN 5,000 UNIT/1 ML VIAL SC SCH ×2 (08:58→20:45)
--- NOTE | 2018-11-27 09:03 | CONS ---
Consult Date/Type/Reason Admit Date/Time Nov 24, 2018 at 17:46 Initial Consult Date 11/25/18 Requesting Provider: DIMA PANDA MD Date/Time of Note DATE: 11/27/18 TIME: 09:01 Subjective cv follow up S: d/w staff and tele was reviewed. pt remains in NSR. NO chest pain or pressure. pt states she is feeling better today O: General: Elderly female. No acute distress HEENT: NC/AT. pupils are equal. round. NECK: NO JVD. no stridor. Breast: Positive for mass CV: RRR. systolic murmur; no gallop or rubs. PULM: no wheezing or rhonchi. GI: SOFT, NT, ND, no rebound or guarding Extremity: trace B/L LE edema. no clubbing. neuro: awake and alert, OX3. Psych: calm and pleasant rectal: deferred : normal Echocardiogram was personally reviewed which shows: Normal left ventricular systolic function. Normal left ventricular cavity size. Normal left ventricular wall thickness. Ejection fraction is visually estimated at 60 %. Tissue Doppler/Mitral Doppler indices are consistent with impaired relaxation (Stage I diastolic dysfunction). Mild mitral annular calcification. Mild mitral valve regurgitation. No significant aortic stenosis or insufficiency. Aortic cusps appear mildly calcified. Normal appearance of the tricuspid valve. Estimated peak PA systolic pressure 25 mmHg. There is trace tricuspid regurgitation. Objective Vitals Vital Signs Date Temp Pulse Resp B/P (MAP) Pulse Ox O2 O2 Flow FiO2 Time Delivery Rate 11/27/18 72 08:21 11/27/18 98.0 20 113/58 98 Room Air 07:52 (76) Intake and Output 11/26/18 11/26/18 11/27/18 1515:00 23:00 07:00 IntakeIntake Total 100 ml 700 ml 1440 ml OutputOutput Total 3800 ml 3300 ml BalanceBalance 100 ml -3100 ml -1860 ml Results/Medications Result Diagram: 11/27/18 0504 11/27/18 0504 Results 24 hrs Laboratory Tests Test 11/26/18 12:02 11/26/18 17:11 11/26/18 21:28 11/27/18 05:04 Bedside Glucose 96 108 150 White Blood Count 4.4 #L Red Blood Count 3.08 L Hemoglobin 10.0 L Hematocrit 27.3 L Mean Corpuscular 88.6 Volume Mean Corpuscular 32.5 Hemoglobin Mean Corpuscular 36.6 Hemoglobin Concent Red Cell 12.5 Distribution Width Platelet Count 163 Mean Platelet Volume 10.8 H Immature 0.500 H Granulocytes % Neutrophils % 58.3 Lymphocytes % 27.7 Monocytes % 10.6 Eosinophils % 2.7 Basophils % 0.2 Nucleated Red Blood 0.0 Cells % Immature 0.020 Granulocytes # Neutrophils # 2.6 Lymphocytes # 1.2 Monocytes # 0.5 Eosinophils # 0.1 Basophils # 0.0 Nucleated Red Blood 0.0 Cells # Sodium Level 124 L Potassium Level 3.4 L Chloride Level 91 L Carbon Dioxide Level 16 L Anion Gap 17 H Blood Urea Nitrogen 50 H Creatinine 6.90 H Est Glomerular Filtrat Rate mL/min Glucose Level 83 Calcium Level 7.4 L Phosphorus Level 8.3 H Magnesium Level 1.9 Test 11/27/18 07:47 Bedside Glucose 101 Home Meds Reported Medications Losartan Potassium* (Losartan Potassium*) 100 Mg Tablet, 100 MG PO DAILY, TAB 11/24/18 Metformin Hcl* (Metformin Hcl*) 850 Mg Tablet, 850 MG PO WITH BREAKFAST DINNE, #60 TAB 11/24/18 Medications Current Medications Sodium Chloride 1,000 ml @ 40 mls/hr Q24H IV Last administered on 11/27/18at 05:09; Admin Dose 70 MLS/HR; Start 11/24/18 at 19:44 IV Flush (NS 3 ml) 3 ml PER PROTOCOL IV ; Start 11/24/18 at 20:00 Ondansetron HCl (Zofran Inj) 4 mg Q6H PRN IV NAUSEA/VOMITING; Start 11/24/18 at 20:00 Acetaminophen (Tylenol Tab) 650 mg Q6H PRN PO .PAIN 1-3 OR TEMP; Start 11/24/18 at 20:00 Acetaminophen/ Hydrocodone Bitart ([place] (5/325)) 1 tab Q6H PRN PO .PAIN 4-6; Start 11/24/18 at 20:00 Diagnostic Test (Pha) (Accu-Chek) 1 ea 02 XX Last administered on 11/26/18at 03:00; Admin Dose 1 EA; Start 11/25/18 at 02:00 Miscellaneous Information 1 ea NOTE XX ; Start 11/24/18 at 20:00 Glucose (Glutose) 15 gm Q15M PRN PO DECREASED GLUCOSE; Start 11/24/18 at 20:00 Glucose (Glutose) 22.5 gm Q15M PRN PO DECREASED GLUCOSE; Start 11/24/18 at 20:00 Dextrose (D50w Syringe) 25 ml Q15M PRN IV DECREASED GLUCOSE; Start 11/24/18 at 20:00 Dextrose (D50w Syringe) 50 ml Q15M PRN IV DECREASED GLUCOSE; Start 11/24/18 at 20:00 Glucagon (Glucagen) 1 mg Q15M PRN IM DECREASED GLUCOSE; Start 11/24/18 at 20:00 Glucose (Glutose) 15 gm Q15M PRN BUCCAL DECREASED GLUCOSE; Start 11/24/18 at 20:00 Heparin Sodium (Porcine) (Heparin (5000 Units/1ml)) 5,000 unit BID SC Last administered on 11/26/18at 21:31; Admin Dose 5,000 UNIT; Start 11/25/18 at 21:00 Insulin Glargine (Lantus) 10 units DAILY@0800 SC Last administered on 11/27/18at 07:49; Admin Dose 10 UNITS; Start 11/25/18 at 11:00 Insulin Aspart (Novolog Insulin Pen) NOVOLOG *MILD* ALGORITHM WITH MEALS BEDTIME SC Last administered on 11/25/18at 22:02; Admin Dose 1 UNIT; Start 11/25/18 at 12:00 Pantoprazole (Protonix Iv) 40 mg BID@06,18 IV Last administered on 11/27/18at 05:09; Admin Dose 40 MG; Start 11/25/18 at 18:00 Hydralazine HCl (Apresoline) 10 mg Q4H PRN IV sbp >160; Start 11/26/18 at 02:00 Trazodone HCl (Desyrel) 50 mg HS PRN PO insomnia Last administered on 11/26/18 03:23; Admin Dose 50 MG; Start 11/26/18 at 02:00 Atorvastatin Calcium (Lipitor) 40 mg HS PO Last administered on 11/26/18at 21:34; Admin Dose 40 MG; Start 11/26/18 at 21:00 Nifedipine (Procardia Xl) 30 mg BID PO Last administered on 11/26/18at 21:35; Admin Dose 30 MG; Start 2/13/19 at 10:30 Sevelamer Carbonate (Renvela) 2,400 mg WITH MEALS PO ; Start 11/27/18 at 12:00 Assessment/Plan Hospital Course (Demo Recall) 1. Mildly abnormal troponin with no chest pain consistent with most likely a false positive troponin secondary to renal failure 2. Renal failure probably acute on chronic details unclear 3. Breast cancer 4. Diabetes 5. Hypertension 6. Dehydration 7. Severe hyponatremia 8. Hyperkalemia Recommendations: Low-dose aspirin as long as no active bleeding is noted EKG will be checked as well Recommend continuation of medical therapy only. Follow-up with renal recommendation regarding an external abnormality renal failure Thank you for his referral. We will continue to follow along with you DOMINGO ARRIOLA MD [facility] DOMINGO ARRIOLA MD Nov 27, 2018 09:02
--- NOTE | 2018-11-27 09:07 | PN ---
DATE: 11/27/2018 SUBJECTIVE: The patient is stable, no events overnight. The patient still remains confused. OBJECTIVE: VITAL SIGNS: Blood pressure is 113/48, respirations 20, pulse 74, temperature 98.0. HEENT: Head is normocephalic. NECK: Supple. HEART: Regular rate. LUNGS: Show diminished breath sounds at the base. ABDOMEN: Soft, nontender to palpation without rebound or guarding. EXTREMITIES: Negative for clubbing, cyanosis, no edema. DERMATOLOGIC: No rashes. MUSCULOSKELETAL: No joint effusion. NEUROLOGIC: No change in exam. MEDICATIONS: The patient's medications have been reviewed. LABORATORY DATA: Showed sodium of 124, potassium 3.4, chloride 91, BUN 50, creatinine 6.90, calcium 7.4, phosphorus 8.3. White count 4.4, hemoglobin 10.0, hematocrit 27.3, platelet count is 163. ASSESSMENT AND PLAN: 1. Nonoliguric acute kidney injury with unknown baseline creatinine. Etiology of acute kidney injur y was multifactorial, possibly secondary to nephrotoxic exposure versus progression of disease. The patient's renal function has not improved despite fluid challenge. Creatinine has remained stable. Please note I attempted to obtain patient's old medical records to date. I have not been able to fin d a recent baseline creatinine. I also spoke with the patient's daughter about the necessity of init iating dialysis. The patient's family will continue to have discussions. No other events noted. We will continue current treatment plan, supportive care, renally dose all medicines. 2. Hypernatremia secondary to acute kidney injury. Continue free water restriction. Sodium levels have been slowly improving. 3. Metabolic acidosis. The patient's ABG was reviewed, currently compensated. We will continue to monitor. No immediate need for bicarbonate therapy. 4. Anemia. Continue to monitor hemoglobin and hematocrit levels. 5. Mineral bone disorder. Continue phosphate binders. 6. Encephalopathy, likely due to underlying uremia. Continue to monitor. The patient may require d ialysis. 7. Nausea and vomiting. Continue to monitor. 8. Hypokalemia. We will replete with potassium chloride. 9. Diabetes. Continue current insulin regimen. 10. Elevated troponin. Continue to monitor. Dictated By: LYNNE ROJAS/KATERINA Conf#: [id number] DID#: [id number] CC: DOMINGO ARRIOLA MD; OLIVE ALBRECHT MD;*End*
[2018-11-27] MEDS: ASPIRIN (EC) 81 MG TAB PO SCH (09:47)
--- NOTE | 2018-11-27 10:35 | PN ---
Date/Time of Note Date/Time of Note DATE: 11/27/18 TIME: 10:23 Assessment/Plan VTE Prophylaxis Risk score (from Nsg)>0 risk: 9 SCD applied (from Nsg): Yes Pharmacological prophylaxis: heparin Lines/Catheters IV Catheter Type (from Nrsg): Peripheral IV Urinary Cath still in place: Yes Reason Cath still needed: other (indicate) Assessment/Plan Hospital Course SUBJECTIVE: Overall, not in any acute distress. OBJECTIVE: Vital signs-see below PHYSICAL EXAM: Constitutional: Elderly female, lying in bed comfortably. Psych: nl mood/affect, no complaints Head: atraumatic, normocephalic Eyes: nl conjunctiva, nl sclera ENMT: mucosa pink and moist, nl external ears & nose Neck: non-tender, supple Respiratory: clear to auscultation, normal air movement Cardiovascular: nl pulses, regular rate and rhythm Gastrointestinal: non-tender, soft, bowel sounds active in all 4 quadrants. Musculoskeletal/extremities: nl extremities to inspection, motor strength equal bilaterally, no focal deficit. Normal pulses,no cyanosis, no edema. Neurological: Alert oriented 3,nl speech, nl strength Skin: +Left breast cancer. nl turgor ASSESSMENT/PLAN: 78-year-old female with recently diagnosed left breast cancer, scheduled for surgery with Dr. Bettencourt on Saturday, here with sudden onset of N/V/abd cramps/diarrhea since Saturday after she received a PET scan, found to hav e acute kidney injury. 1.N/V/Diarrhea-most likely uremic toxicity. -Symptoms resolved. 2. Acute kidney injury , likely nephrotoxin induced versus progression of disease. -At this time, patient with worsening renal function requiring hemodialysis. Nephrology managing. 3. DMII -A1c noted -stable glycemic trends. -cont.insulin 4. Severe Hyponatremia in light of acute kidney injury -Improving slowly -mgmt per fiber optics engineer 5. Anemia of chronic illness -Stable H&H, monitor 6. Left breast cancer - PET/MRI studies.PET/MRI study did not reveal any metastasis. -Outpatient follow-up with Dr. Batista for rescheduling surgical intervention once patient is medically cleared/renal function improves. 7. Troponin leak, in light of BELA. ACS ruled out -No chest pain -Troponin trended down. Cardiology recommended medical management. -Continue aspirin/Statin prophylaxis. 8. Hypercholesteremia -On statin. 9. Hypertension -Hold losartan secondary to acute kidney injury. -Continue Procardia for BP DVT prophylaxis: Subcu heparin PUD prophylaxis: Protonix CODE STATUS: Full code Diet: Clear diet. Disposition:Plan is hemodialysis. Await for return/improvement of renal function. Follow-up with nephrology recommendations. Patient was seen in collaboration w/ Result Diagram: 11/27/18 0504 11/27/18 0504 Results 24hrs Laboratory Tests Test 11/26/18 12:02 11/26/18 17:11 11/26/18 21:28 11/27/18 05:04 Bedside Glucose 96 108 150 White Blood Count 4.4 #L Red Blood Count 3.08 L Hemoglobin 10.0 L Hematocrit 27.3 L Mean Corpuscular 88.6 Volume Mean Corpuscular 32.5 Hemoglobin Mean Corpuscular 36.6 Hemoglobin Concent Red Cell 12.5 Distribution Width Platelet Count 163 Mean Platelet Volume 10.8 H Immature 0.500 H Granulocytes % Neutrophils % 58.3 Lymphocytes % 27.7 Monocytes % 10.6 Eosinophils % 2.7 Basophils % 0.2 Nucleated Red Blood 0.0 Cells % Immature 0.020 Granulocytes # Neutrophils # 2.6 Lymphocytes # 1.2 Monocytes # 0.5 Eosinophils # 0.1 Basophils # 0.0 Nucleated Red Blood 0.0 Cells # Sodium Level 124 L Potassium Level 3.4 L Chloride Level 91 L Carbon Dioxide Level 16 L Anion Gap 17 H Blood Urea Nitrogen 50 H Creatinine 6.90 H Est Glomerular Filtrat Rate mL/min Glucose Level 83 Calcium Level 7.4 L Phosphorus Level 8.3 H Magnesium Level 1.9 Test 11/27/18 07:47 Bedside Glucose 101 Exam/Review of Systems Exam Vitals Vital Signs Date Temp Pulse Resp B/P (MAP) Pulse Ox O2 O2 Flow FiO2 Time Delivery Rate 11/27/18 72 08:21 11/27/18 98.0 20 113/58 98 Room Air 07:52 (76) Intake and Output 11/26/18 11/26/18 11/27/18 1515:00 23:00 07:00 IntakeIntake Total 100 ml 700 ml 1440 ml OutputOutput Total 3800 ml 3300 ml BalanceBalance 100 ml -3100 ml -1860 ml Results Results 24hrs Laboratory Tests Test 11/26/18 12:02 11/26/18 17:11 11/26/18 21:28 11/27/18 05:04 Bedside Glucose 96 108 150 White Blood Count 4.4 #L Red Blood Count 3.08 L Hemoglobin 10.0 L Hematocrit 27.3 L Mean Corpuscular 88.6 Volume Mean Corpuscular 32.5 Hemoglobin Mean Corpuscular 36.6 Hemoglobin Concent Red Cell 12.5 Distribution Width Platelet Count 163 Mean Platelet Volume 10.8 H Immature 0.500 H Granulocytes % Neutrophils % 58.3 Lymphocytes % 27.7 Monocytes % 10.6 Eosinophils % 2.7 Basophils % 0.2 Nucleated Red Blood 0.0 Cells % Immature 0.020 Granulocytes # Neutrophils # 2.6 Lymphocytes # 1.2 Monocytes # 0.5 Eosinophils # 0.1 Basophils # 0.0 Nucleated Red Blood 0.0 Cells # Sodium Level 124 L Potassium Level 3.4 L Chloride Level 91 L Carbon Dioxide Level 16 L Anion Gap 17 H Blood Urea Nitrogen 50 H Creatinine 6.90 H Est Glomerular Filtrat Rate mL/min Glucose Level 83 Calcium Level 7.4 L Phosphorus Level 8.3 H Magnesium Level 1.9 Test 11/27/18 07:47 Bedside Glucose 101 Medications Medication Current Medications Sodium Chloride 1,000 ml @ 40 mls/hr Q24H IV Last administered on 11/27/18at 05:09; Admin Dose 70 MLS/HR; Start 11/24/18 at 19:44 IV Flush (NS 3 ml) 3 ml PER PROTOCOL IV ; Start 11/24/18 at 20:00 Ondansetron HCl (Zofran Inj) 4 mg Q6H PRN IV NAUSEA/VOMITING; Start 11/24/18 at 20:00 Acetaminophen (Tylenol Tab) 650 mg Q6H PRN PO .PAIN 1-3 OR TEMP; Start 11/24/18 at 20:00 Acetaminophen/ Hydrocodone Bitart ([place] (5/325)) 1 tab Q6H PRN PO .PAIN 4-6; Start 11/24/18 at 20:00 Diagnostic Test (Pha) (Accu-Chek) 1 ea 02 XX Last administered on 11/26/18at 03:00; Admin Dose 1 EA; Start 11/25/18 at 02:00 Miscellaneous Information 1 ea NOTE XX ; Start 11/24/18 at 20:00 Glucose (Glutose) 15 gm Q15M PRN PO DECREASED GLUCOSE; Start 11/24/18 at 20:00 Glucose (Glutose) 22.5 gm Q15M PRN PO DECREASED GLUCOSE; Start 11/24/18 at 20:00 Dextrose (D50w Syringe) 25 ml Q15M PRN IV DECREASED GLUCOSE; Start 11/24/18 at 20:00 Dextrose (D50w Syringe) 50 ml Q15M PRN IV DECREASED GLUCOSE; Start 11/24/18 at 20:00 Glucagon (Glucagen) 1 mg Q15M PRN IM DECREASED GLUCOSE; Start 11/24/18 at 20:00 Glucose (Glutose) 15 gm Q15M PRN BUCCAL DECREASED GLUCOSE; Start 11/24/18 at 20:00 Heparin Sodium (Porcine) (Heparin (5000 Units/1ml)) 5,000 unit BID SC Last administered on 11/27/18at 08:58; Admin Dose 5,000 UNIT; Start 11/25/18 at 21:00 Insulin Glargine (Lantus) 10 units DAILY@0800 SC Last administered on 11/27/18at 07:49; Admin Dose 10 UNITS; Start 11/25/18 at 11:00 Insulin Aspart (Novolog Insulin Pen) NOVOLOG *MILD* ALGORITHM WITH MEALS BEDTIME SC Last administered on 11/25/18at 22:02; Admin Dose 1 UNIT; Start 11/25/18 at 12:00 Pantoprazole (Protonix Iv) 40 mg BID@06,18 IV Last administered on 11/27/18at 05:09; Admin Dose 40 MG; Start 11/25/18 at 18:00 Hydralazine HCl (Apresoline) 10 mg Q4H PRN IV sbp >160; Start 11/26/18 at 02:00 Trazodone HCl (Desyrel) 50 mg HS PRN PO insomnia Last administered on 11/26/18at 03:23; Admin Dose 50 MG; Start 11/26/18 at 02:00 Atorvastatin Calcium (Lipitor) 40 mg HS PO Last administered on 11/26/18at 21:34; Admin Dose 40 MG; Start 11/26/18 at 21:00 Nifedipine (Procardia Xl) 30 mg BID PO Last administered on 11/27/18at 08:53; Admin Dose 30 MG; Start 11/26/18 at 10:30 Sevelamer Carbonate (Renvela) 2,400 mg WITH MEALS PO ; Start 11/27/18 at 12:00 Aspirin (Halfprin) 81 mg DAILY PO Last administered on 11/27/18at 09:47; Admin Dose 81 MG; Start 11/27/18 at 09:30 TENZIN ALVES NP Nov 27, 2018 10:34
[2018-11-27] MEDS ORDERED: LIDOCAINE 1% (MPF) 5 ML VIAL ONE (13:42)
[2018-11-27] MEDS ORDERED: HEPARIN 1000 UNITS/ML 10 ML INJ ONE (15:00)
[2018-11-27] MEDS: PANTOPRAZOLE (EC) 40 MG TAB PO SCH (17:14)
[2018-11-27] MEDS: ATORVASTATIN 80 MG TAB PO SCH (20:40)
[2018-11-28] VITALS (20 sets, daily range): BP systolic 108–162; BP diastolic 61–72; PULSE 74–95; RESP 16–20
[2018-11-28] MEDS: ACCU-CHEK XX SCH (02:00)
[2018-11-28] MEDS: PANTOPRAZOLE (EC) 40 MG TAB PO SCH ×2 (06:18→17:09)
[2018-11-28] MEDS: INSULIN ASPART [NOVOLOG] 3 ML PEN SC SCH ×4 (07:38→21:00)
[2018-11-28] MEDS: SEVELAMER CARBONATE 800 MG TABLET PO SCH ×3 (07:39→17:09)
[2018-11-28] MEDS: INSULIN GLARGINE [LANTus] (100 UNITS/ML) SYG SC SCH (07:43)
[2018-11-28] MEDS: NIFEdipine (XL) 30 MG TAB PO SCH ×2 (09:00→21:51)
--- NOTE | 2018-11-28 09:50 | PN ---
Date/Time of Note Date/Time of Note DATE: 11/28/18 TIME: 09:48 Assessment/Plan VTE Prophylaxis Risk score (from Nsg)>0 risk: 7 SCD applied (from Nsg): Yes Pharmacological prophylaxis: heparin Lines/Catheters IV Catheter Type (from Nrsg): bonita cath Urinary Cath still in place: Yes Reason Cath still needed: other (indicate) Assessment/Plan Hospital Course SUBJECTIVE: Patient has been started on hemodialysis. No acute episodes. OBJECTIVE: Vital signs-see below PHYSICAL EXAM: Constitutional: Elderly female, lying in bed comfortably. Psych: nl mood/affect, no complaints Head: atraumatic, normocephalic Eyes: nl conjunctiva, nl sclera ENMT: mucosa pink and moist, nl external ears & nose Neck: non-tender, supple Respiratory: clear to auscultation, normal air movement Cardiovascular: nl pulses, regular rate and rhythm Gastrointestinal: non-tender, soft, bowel sounds active in all 4 quadrants. Musculoskeletal/extremities: nl extremities to inspection, motor strength equal bilaterally, no focal deficit. Normal pulses,no cyanosis, no edema. Neurological: Alert oriented 3,nl speech, nl strength Skin: +Left breast cancer. nl turgor ASSESSMENT/PLAN: 78-year-old female with recently diagnosed left breast cancer, scheduled for surgery with Dr. Bettencourt on Saturday, here with sudden onset of N/V/abd cramps/diarrhea since Saturday after she received a PET scan, found to have acute kidney injury. 1.N/V/Diarrhea-most likely uremic toxicity. -Symptoms resolved. 2. Acute kidney injury requiring hemodialysis, likely nephrotoxin induced versus progression of disease. -Management per nephrology. Patient underwent her first successful hemodialysis session. - Creatinine with significant improvement. 3. DMII -A1c noted -stable glycemic trends. -cont.insulin 4. Severe Hyponatremia in light of acute kidney injury -Improved -mgmt per sales appointment coordinator 5. Anemia of chronic illness -Stable H&H, monitor 6. Left breast cancer - PET/MRI studies.PET/MRI study did not reveal any metastasis. -Outpatient follow-up with Dr. Batista for rescheduling surgical intervention once patient is medically cleared/renal function improves. 7. Troponin leak, in light of BELA. ACS ruled out -No chest pain -Troponin trended down. Cardiology recommended medical management. -Continue aspirin/Statin prophylaxis. 8. Hypercholesteremia -On statin. 9. Hypertension -Stable. -Continue Procardia for BP DVT prophylaxis: Subcu heparin PUD prophylaxis: Protonix CODE STATUS: Full code Diet: Clear diet. Disposition: Renal management per nephrology, await for improvement. Patient was seen in collaboration w/ Result Diagram: 11/28/18 0536 11/28/18 0536 Results 24hrs Laboratory Tests Test 11/27/18 11:56 11/27/18 17:13 11/27/18 20:39 11/28/18 05:36 Bedside Glucose 182 219 94 White Blood Count 4.8 Red Blood Count 3.37 L Hemoglobin 10.9 L Hematocrit 30.7 L Mean Corpuscular 91.1 Volume Mean Corpuscular 32.3 Hemoglobin Mean Corpuscular 35.5 Hemoglobin Concent Red Cell 12.5 Distribution Width Platelet Count 191 Mean Platelet Volume 10.3 Immature 0.600 H Granulocytes % Neutrophils % 59.4 Lymphocytes % 25.2 Monocytes % 11.7 H Eosinophils % 2.7 Basophils % 0.4 Nucleated Red Blood 0.0 Cells % Immature 0.030 Granulocytes # Neutrophils # 2.9 Lymphocytes # 1.2 Monocytes # 0.6 Eosinophils # 0.1 Basophils # 0.0 Nucleated Red Blood 0.0 Cells # Sodium Level 130 L Potassium Level 3.9 Chloride Level 96 L Carbon Dioxide Level 22 Anion Gap 12 Blood Urea Nitrogen 29 #H Creatinine 4.66 #H Est Glomerular Filtrat Rate mL/min Glucose Level 96 Calcium Level 8.0 L Phosphorus Level 3.9 # Magnesium Level 1.8 Test 11/28/18 07:38 Bedside Glucose 105 Exam/Review of Systems Exam Vitals Vital Signs Date Temp Pulse Resp B/P (MAP) Pulse Ox O2 O2 Flow FiO2 Time Delivery Rate 11/28/18 95 08:33 11/28/18 98.0 20 141/67 96 07:42 (91) 11/28/18 Room Air 04:00 Intake and Output 11/27/18 11/27/18 11/28/18 1515:00 23:00 07:00 IntakeIntake Total 900 ml 1280 ml OutputOutput Total 2600 ml 2700 ml BalanceBalance -1700 ml -1420 ml Results Results 24hrs Laboratory Tests Test 11/27/18 11:56 11/27/18 17:13 11/27/18 20:39 11/28/18 05:36 Bedside Glucose 182 219 94 White Blood Count 4.8 Red Blood Count 3.37 L Hemoglobin 10.9 L Hematocrit 30.7 L Mean Corpuscular 91.1 Volume Mean Corpuscular 32.3 Hemoglobin Mean Corpuscular 35.5 Hemoglobin Concent Red Cell 12.5 Distribution Width Platelet Count 191 Mean Platelet Volume 10.3 Immature 0.600 H Granulocytes % Neutrophils % 59.4 Lymphocytes % 25.2 Monocytes % 11.7 H Eosinophils % 2.7 Basophils % 0.4 Nucleated Red Blood 0.0 Cells % Immature 0.030 Granulocytes # Neutrophils # 2.9 Lymphocytes # 1.2 Monocytes # 0.6 Eosinophils # 0.1 Basophils # 0.0 Nucleated Red Blood 0.0 Cells # Sodium Level 130 L Potassium Level 3.9 Chloride Level 96 L Carbon Dioxide Level 22 Anion Gap 12 Blood Urea Nitrogen 29 #H Creatinine 4.66 #H Est Glomerular Filtrat Rate mL/min Glucose Level 96 Calcium Level 8.0 L Phosphorus Level 3.9 # Magnesium Level 1.8 Test 11/28/18 07:38 Bedside Glucose 105 Medications Medication Current Medications IV Flush (NS 3 ml) 3 ml PER PROTOCOL IV ; Start 11/24/18 at 20:00 Ondansetron HCl (Zofran Inj) 4 mg Q6H PRN IV NAUSEA/VOMITING; Start 11/24/18 at 20:00 Acetaminophen (Tylenol Tab) 650 mg Q6H PRN PO .PAIN 1-3 OR TEMP; Start 11/24/18 at 20:00 Acetaminophen/ Hydrocodone Bitart ([place] (5/325)) 1 tab Q6H PRN PO .PAIN 4-6; Start 11/24/18 at 20:00 Diagnostic Test (Pha) (Accu-Chek) 1 ea 02 XX Last administered on 11/26/18at 03:00; Admin Dose 1 EA; Start 11/25/18 at 02:00 Miscellaneous Information 1 ea NOTE XX ; Start 11/24/18 at 20:00 Glucose (Glutose) 15 gm Q15M PRN PO DECREASED GLUCOSE; Start 11/24/18 at 20:00 Glucose (Glutose) 22.5 gm Q15M PRN PO DECREASED GLUCOSE; Start 11/24/18 at 20:00 Dextrose (D50w Syringe) 25 ml Q15M PRN IV DECREASED GLUCOSE; Start 11/24/18 at 20:00 Dextrose (D50w Syringe) 50 ml Q15M PRN IV DECREASED GLUCOSE; Start 11/24/18 at 20:00 Glucagon (Glucagen) 1 mg Q15M PRN IM DECREASED GLUCOSE; Start 11/24/18 at 20:00 Glucose (Glutose) 15 gm Q15M PRN BUCCAL DECREASED GLUCOSE; Start 11/24/18 at 20:00 Heparin Sodium (Porcine) (Heparin (5000 Units/1ml)) 5,000 unit BID SC Last administered on 11/27/18 20:45; Admin Dose 5,000 UNIT; Start 11/25/18 at 21:00 Insulin Glargine (Lantus) 10 units DAILY@0800 SC Last administered on 11/28/18 07:43; Admin Dose 10 UNITS; Start 11/25/18 at 11:00 Insulin Aspart (Novolog Insulin Pen) NOVOLOG *MILD* ALGORITHM WITH MEALS BEDTIME SC Last administered on 11/27/18 17:19; Admin Dose 2 UNIT; Start 11/25/18 at 12:00 Hydralazine HCl (Apresoline) 10 mg Q4H PRN IV sbp >160; Start 11/26/18 at 02:00 Trazodone HCl (Desyrel) 50 mg HS PRN PO insomnia Last administered on 11/26/18 03:23; Admin Dose 50 MG; Start 11/26/18 at 02:00 Atorvastatin Calcium (Lipitor) 40 mg HS PO Last administered on 11/27/18 20:40; Admin Dose 40 MG; Start 11/26/18 at 21:00 Nifedipine (Procardia Xl) 30 mg BID PO Last administered on 11/27/18 20:40; Admin Dose 30 MG; Start 11/26/18 at 10:30 Sevelamer Carbonate (Renvela) 2,400 mg WITH MEALS PO Last administered on 11/28/18 07:39; Admin Dose 2,400 MG; Start 11/27/18 at 12:00 Aspirin (Halfprin) 81 mg DAILY PO Last administered on 11/27/18 09:47; Admin Dose 81 MG; Start 11/27/18 at 09:30 Pantoprazole (Protonix Tab) 40 mg BID@0600,1800 PO Last administered on 2/15/19at 06:18; Admin Dose 40 MG; Start 11/27/18 at 18:00 TENZIN ALVES NP Nov 28, 2018 09:50
[2018-11-28] MEDS: ASPIRIN (EC) 81 MG TAB PO SCH (10:02)
[2018-11-28] MEDS: HEPARIN 5,000 UNIT/1 ML VIAL SC SCH ×2 (10:06→22:02)
--- NOTE | 2018-11-28 12:38 | PN ---
DATE: 11/28/2018 SUBJECTIVE: The patient had a Franck catheter placed yesterday with dialysis. The patient tolerate d the procedure well. The patient is more alert this morning. OBJECTIVE: VITAL SIGNS: Blood pressure is 141/67, respirations 20, pulse 89, temperature 98.0. HEENT: Head is normocephalic. NECK: Supple. HEART: Regular rate. LUNGS: Show diminished breath sounds at base. ABDOMEN: Soft, nontender to palpation without rebound or guarding. EXTREMITIES: Negative for clubbing, cyanosis, no edema. DERMATOLOGIC: No rashes. MUSCULOSKELETAL: No joint effusion. NEUROLOGIC: No change in exam. MEDICATIONS: Reviewed. LABORATORY DATA: Shows white count 4.8, hemoglobin 10.9, platelet count 191. Sodium 130, potassium 3.9, chloride 96, BUN 29, creatinine 4.66. ASSESSMENT AND PLAN: 1. Nonoliguric acute kidney injury on top of chronic kidney disease with unknown baseline creatinine . Unclear if this is a progression of chronic kidney disease to end-stage renal disease versus acute kidney injury from recent nephrotoxic exposure. The patient was initiated on dialysis due to uremic symptoms. The patient tolerated well. The patient more alert today. Anticipate dialysis today and tomorrow. Will monitor closely. 2. Hypernatremia, improving. Continue to limit free water intake. Continue hemodialysis on a 140 s odium bath. 3. Metabolic acidosis, improved. Continue hemodialysis. 4. Anemia. Monitor hemoglobin and hematocrit levels. 5. Mineral bone disorder. Monitor calcium and phosphorus levels. 6. Uremia, improving Continue dialysis. 7. Diabetes. Continue current insulin regimen. 8. Newly diagnosed breast cancer. Continue to monitor. Continue outpatient followup and management . Dictated By: LYNNE ROJAS/KATERINA Conf#: [id number] DID#: [id number] CC: OLIVE ALBRECHT MD;*EndCC*
--- NOTE | 2018-11-28 14:52 | CONS ---
Consult Date/Type/Reason Admit Date/Time Nov 24, 2018 at 17:46 Initial Consult Date 11/25/18 Requesting Provider: DIMA PANDA MD Date/Time of Note DATE: 11/28/18 TIME: 14:51 Subjective cv follow up S: d/w staff and tele was reviewed. pt remains in NSR. Discussed with patient daughter at the bedside NO chest pain or pressure. Patient complaining of left breast pain O: General: Elderly female. No acute distress HEENT: NC/AT. pupils are equal. round. NECK: NO JVD. no stridor. Status post right-sided with dialysis access in place Breast: Positive for mass CV: RRR. systolic murmur; no gallop or rubs. PULM: no wheezing or rhonchi. GI: SOFT, NT, ND, no rebound or guarding Extremity: trace B/L LE edema. no clubbing. neuro: awake and alert, OX3. Psych: calm and pleasant rectal: deferred : normal Echocardiogram was personally reviewed which shows: Normal left ventricular systolic function. Normal left ventricular cavity size. Normal left ventricular wall thickness. Ejection fraction is visually estimated at 60 %. Tissue Doppler/Mitral Doppler indices are consistent with impaired relaxation (Stage I diastolic dysfunction). Mild mitral annular calcification. Mild mitral valve regurgitation. No significant aortic stenosis or insufficiency. Aortic cusps appear mildly calcified. Normal appearance of the tricuspid valve. Estimated peak PA systolic pressure 25 mmHg. There is trace tricuspid regurgitation. Objective Vitals Vital Signs Date Temp Pulse Resp B/P (MAP) Pulse Ox O2 O2 Flow FiO2 Time Delivery Rate 11/28/18 90 12:13 11/28/18 98.0 20 144/66 97 Room Air 11:55 (92) Intake and Output 11/27/18 11/27/18 11/28/18 1414:59 22:59 06:59 IntakeIntake Total 900 ml 1280 ml OutputOutput Total 2600 ml 2700 ml BalanceBalance -1700 ml -1420 ml Results/Medications Result Diagram: 11/28/18 0536 11/28/18 0536 Results 24 hrs Laboratory Tests Test 11/27/18 17:13 11/27/18 20:39 11/28/18 05:36 11/28/18 07:38 Bedside Glucose 219 94 105 White Blood Count 4.8 Red Blood Count 3.37 L Hemoglobin 10.9 L Hematocrit 30.7 L Mean Corpuscular 91.1 Volume Mean Corpuscular 32.3 Hemoglobin Mean Corpuscular 35.5 Hemoglobin Concent Red Cell 12.5 Distribution Width Platelet Count 191 Mean Platelet Volume 10.3 Immature 0.600 H Granulocytes % Neutrophils % 59.4 Lymphocytes % 25.2 Monocytes % 11.7 H Eosinophils % 2.7 Basophils % 0.4 Nucleated Red Blood 0.0 Cells % Immature 0.030 Granulocytes # Neutrophils # 2.9 Lymphocytes # 1.2 Monocytes # 0.6 Eosinophils # 0.1 Basophils # 0.0 Nucleated Red Blood 0.0 Cells # Sodium Level 130 L Potassium Level 3.9 Chloride Level 96 L Carbon Dioxide Level 22 Anion Gap 12 Blood Urea Nitrogen 29 #H Creatinine 4.66 #H Est Glomerular Filtrat Rate mL/min Glucose Level 96 Calcium Level 8.0 L Phosphorus Level 3.9 # Magnesium Level 1.8 Test 11/28/18 11:29 Bedside Glucose 310 H Home Meds Reported Medications Losartan Potassium* (Losartan Potassium*) 100 Mg Tablet, 100 MG PO DAILY, TAB 11/24/18 Metformin Hcl* (Metformin Hcl*) 850 Mg Tablet, 850 MG PO WITH BREAKFAST DINNE, #60 TAB 11/24/18 Medications Current Medications IV Flush (NS 3 ml) 3 ml PER PROTOCOL IV ; Start 11/24/18 at 20:00 Ondansetron HCl (Zofran Inj) 4 mg Q6H PRN IV NAUSEA/VOMITING; Start 11/24/18 at 20:00 Acetaminophen (Tylenol Tab) 650 mg Q6H PRN PO .PAIN 1-3 OR TEMP; Start 11/24/18 at 20:00 Acetaminophen/ Hydrocodone Bitart ([place] (5/325)) 1 tab Q6H PRN PO .PAIN 4-6; Start 11/24/18 at 20:00 Diagnostic Test (Pha) (Accu-Chek) 1 ea 02 XX Last administered on 11/26/18at 03:00; Admin Dose 1 EA; Start 11/25/18 at 02:00 Miscellaneous Information 1 ea NOTE XX ; Start 11/24/18 at 20:00 Glucose (Glutose) 15 gm Q15M PRN PO DECREASED GLUCOSE; Start 11/24/18 at 20:00 Glucose (Glutose) 22.5 gm Q15M PRN PO DECREASED GLUCOSE; Start 11/24/18 at 20:00 Dextrose (D50w Syringe) 25 ml Q15M PRN IV DECREASED GLUCOSE; Start 11/24/18 at 20:00 Dextrose (D50w Syringe) 50 ml Q15M PRN IV DECREASED GLUCOSE; Start 11/24/18 at 20:00 Glucagon (Glucagen) 1 mg Q15M PRN IM DECREASED GLUCOSE; Start 11/24/18 at 20:00 Glucose (Glutose) 15 gm Q15M PRN BUCCAL DECREASED GLUCOSE; Start 11/24/18 at 20:00 Heparin Sodium (Porcine) (Heparin (5000 Units/1ml)) 5,000 unit BID SC Last administered on 11/28/18 10:06; Admin Dose 5,000 UNIT; Start 11/25/18 at 21:00 Insulin Glargine (Lantus) 10 units DAILY@0800 SC Last administered on 11/28/18 07:43; Admin Dose 10 UNITS; Start 11/25/18 at 11:00 Insulin Aspart (Novolog Insulin Pen) NOVOLOG *MILD* ALGORITHM WITH MEALS BEDTIME SC Last administered on 11/28/18 11:41; Admin Dose 5 UNIT; Start 11/25/18 at 12:00 Hydralazine HCl (Apresoline) 10 mg Q4H PRN IV sbp >160; Start 11/26/18 at 02:00 Trazodone HCl (Desyrel) 50 mg HS PRN PO insomnia Last administered on 11/26/18 03:23; Admin Dose 50 MG; Start 11/26/18 at 02:00 Atorvastatin Calcium (Lipitor) 40 mg HS PO Last administered on 11/27/18 20:40; Admin Dose 40 MG; Start 11/26/18 at 21:00 Nifedipine (Procardia Xl) 30 mg BID PO Last administered on 11/27/18 20:40; Admin Dose 30 MG; Start 11/26/18 at 10:30 Sevelamer Carbonate (Renvela) 2,400 mg WITH MEALS PO Last administered on 11/28/18 11:29; Admin Dose 2,400 MG; Start 11/27/18 at 12:00 Aspirin (Halfprin) 81 mg DAILY PO Last administered on 11/28/18 10:02; Admin Dose 81 MG; Start 11/27/18 at 09:30 Pantoprazole (Protonix Tab) 40 mg BID@0600,1800 PO Last administered on 11/28/18at 06:18; Admin Dose 40 MG; Start 11/27/18 at 18:00 Assessment/Plan Hospital Course (Demo Recall) 1. Mildly abnormal troponin with no chest pain consistent with most likely a false positive troponin secondary to renal failure 2. Renal failure probably acute on chronic details unclear 3. Breast cancer 4. Diabetes 5. Hypertension 6. Dehydration 7. Severe hyponatremia 8. Hyperkalemia Recommendations: Low-dose aspirin as long as no active bleeding is noted Hemodialysis as per renal Recommend continuation of medical therapy only. Follow-up with renal recommendation regarding an external abnormality renal failure Thank you for his referral. We will continue to follow along with you DOMINGO ARRIOLA MD [facility] DOMINGO ARRIOLA MD Nov 28, 2018 14:52
[2018-11-28] MEDS: ATORVASTATIN 80 MG TAB PO SCH (21:50)
[2018-11-29] VITALS (26 sets, daily range): BP systolic 97–168; BP diastolic 54–90; PULSE 72–86; RESP 16–20
[2018-11-29] MEDS: ACCU-CHEK XX SCH (02:00)
[2018-11-29] MEDS: PANTOPRAZOLE (EC) 40 MG TAB PO SCH ×2 (05:31→17:03)
[2018-11-29] MEDS: SEVELAMER CARBONATE 800 MG TABLET PO SCH ×3 (07:37→17:03)
[2018-11-29] MEDS: INSULIN GLARGINE [LANTus] (100 UNITS/ML) SYG SC SCH (07:51)
[2018-11-29] MEDS: INSULIN ASPART [NOVOLOG] 3 ML PEN SC SCH ×5 (07:52→21:00)
[2018-11-29] MEDS: NIFEdipine (XL) 30 MG TAB PO SCH ×2 (08:40→21:00)
[2018-11-29] MEDS: ASPIRIN (EC) 81 MG TAB PO SCH (08:40)
[2018-11-29] MEDS: HEPARIN 5,000 UNIT/1 ML VIAL SC SCH ×2 (08:46→22:12)
--- NOTE | 2018-11-29 15:43 | PN ---
DATE: 11/29/2018 SUBJECTIVE: The patient is more alert. No other acute events noted. No hemoptysis, hematemesis or hematochezia. OBJECTIVE: VITAL SIGNS: Blood pressure is 168/75, respiration 19, pulse 77, temperature 98.2. HEENT: Head is normocephalic. NECK: Supple. HEART: Regular rate. LUNGS: Show diminished breath sounds at the base. ABDOMEN: Soft, nontender to palpation without rebound or guarding. EXTREMITIES: Negative for clubbing, cyanosis, no edema. DERMATOLOGIC: No rashes. MUSCULOSKELETAL: No joint effusion. NEUROLOGIC: No change in exam. MEDICATIONS: Reviewed. LABORATORY DATA: Shows sodium 135, potassium 3.9, BUN 21, creatinine 3.81. White count 5.7, hemoglo bin 10.3, hematocrit 29.5, platelet count is 217. ASSESSMENT AND PLAN: 1. Nonoliguric acute kidney injury on top of chronic kidney disease with unknown baseline creatinine . Unclear if this is progression of chronic kidney disease towards end-stage renal disease versus ac [place] kidney injury due to possible nephrotoxic exposure. The patient is currently dialysis dependent due to uremic symptoms. The patient is status post 2 sessions of dialysis. Plan for third session t marcos. Continue to monitor closely for any signs of recovery. 2. Hypernatremia, improved. 3. Metabolic acidosis, improved. 4. Anemia. Monitor hemoglobin and hematocrit levels. Will give Epogen if needed. 5. Mineral bone disorder. Monitor calcium and phosphorus levels. 6. Uremia, improving. Continue hemodialysis. 7. Diabetes. Continue current insulin regimen. 8. Newly diagnosed breast cancer. Continue to monitor. Dictated By: LYNNE RHODES DO NR/NTS Conf#: [id number] DID#: [id number] CC: OLIVE ALBRECHT MD;*EndCC*
[2018-11-29] MEDS ORDERED: HEPARIN 1000 UNITS/ML 10 ML INJ CATHETER SCH ×2 (20:00→22:30)
[2018-11-29] MEDS: SENNA/DOCUSATE NA (8.6MG/50MG) TAB PO SCH (22:06)
[2018-11-29] MEDS: ATORVASTATIN 80 MG TAB PO SCH (22:06)
--- NOTE | 2018-11-29 22:15 | PN ---
Date/Time of Note Date/Time of Note DATE: 11/29/18 TIME: 22:10 Assessment/Plan VTE Prophylaxis Risk score (from Nsg)>0 risk: 5 SCD applied (from Nsg): Yes SCD contraindicated: low risk/ambulating Pharmacological prophylaxis: LMWH Lines/Catheters IV Catheter Type (from Nrsg): ERMELINDA. Urinary Cath still in place: Yes Reason Cath still needed: urinary retention, pres ulcer contaminated by urine, terminal illness/intractable pain Assessment/Plan Hospital Course A/P 1 ARF/ uremia; stable, cont HD. check hep panel; needs outpt HD arranged 2 Breast Ca 3 DM 10.0 4 Severe hyponatremia; stable 5 False Troponin 6 Deconditioning S: no distress O: vss PE no pallor/ jvd reg s1s2 no mrg ctab bs + nt nd; no rrg no edema Result Diagram: 11/29/1851711/29/1818 Results 24hrs Laboratory Tests Test 11/29/18 05:18 11/29/18 07:40 11/29/18 11:43 11/29/18 17:05 White Blood Count 5.7 Red Blood Count 3.15 L Hemoglobin 10.3 L Hematocrit 29.5 L Mean Corpuscular 93.7 Volume Mean Corpuscular 32.7 Hemoglobin Mean Corpuscular 34.9 Hemoglobin Concent Red Cell 12.6 Distribution Width Platelet Count 217 Mean Platelet Volume 10.2 Immature 0.200 Granulocytes % Neutrophils % 65.7 Lymphocytes % 20.1 Monocytes % 11.2 H Eosinophils % 2.3 Basophils % 0.5 Nucleated Red Blood 0.0 Cells % Immature 0.010 Granulocytes # Neutrophils # 3.8 Lymphocytes # 1.2 Monocytes # 0.6 Eosinophils # 0.1 Basophils # 0.0 Nucleated Red Blood 0.0 Cells # Sodium Level 135 Potassium Level 3.9 Chloride Level 96 L Carbon Dioxide Level 27 Anion Gap 12 Blood Urea Nitrogen 21 H Creatinine 3.81 H Est Glomerular Filtrat Rate mL/min Glucose Level 149 # Calcium Level 8.6 Phosphorus Level 3.2 Magnesium Level 1.9 Bedside Glucose 169 226 H 202 Test 11/29/18 22:03 Bedside Glucose 125 Exam/Review of Systems Exam Vitals Vital Signs Date Temp Pulse Resp B/P (MAP) Pulse Ox O2 O2 Flow FiO2 Time Delivery Rate 11/29/18 76 21:15 11/29/18 99.1 20 108/55 95 19:35 (72) 11/29/18 Room Air 19:15 Intake and Output 11/28/18 11/28/18 11/29/18 1515:00 23:00 07:00 IntakeIntake Total 800 ml 250 ml OutputOutput Total 2400 ml 3500 ml BalanceBalance -1600 ml -3250 ml Results Results 24hrs Laboratory Tests Test 11/29/18 05:18 11/29/18 07:40 11/29/18 11:43 11/29/18 17:05 White Blood Count 5.7 Red Blood Count 3.15 L Hemoglobin 10.3 L Hematocrit 29.5 L Mean Corpuscular 93.7 Volume Mean Corpuscular 32.7 Hemoglobin Mean Corpuscular 34.9 Hemoglobin Concent Red Cell 12.6 Distribution Width Platelet Count 217 Mean Platelet Volume 10.2 Immature 0.200 Granulocytes % Neutrophils % 65.7 Lymphocytes % 20.1 Monocytes % 11.2 H Eosinophils % 2.3 Basophils % 0.5 Nucleated Red Blood 0.0 Cells % Immature 0.010 Granulocytes # Neutrophils # 3.8 Lymphocytes # 1.2 Monocytes # 0.6 Eosinophils # 0.1 Basophils # 0.0 Nucleated Red Blood 0.0 Cells # Sodium Level 135 Potassium Level 3.9 Chloride Level 96 L Carbon Dioxide Level 27 Anion Gap 12 Blood Urea Nitrogen 21 H Creatinine 3.81 H Est Glomerular Filtrat Rate mL/min Glucose Level 149 # Calcium Level 8.6 Phosphorus Level 3.2 Magnesium Level 1.9 Bedside Glucose 169 226 H 202 Test 11/29/18 22:03 Bedside Glucose 125 Medications Medication Current Medications IV Flush (NS 3 ml) 3 ml PER PROTOCOL IV ; Start 11/24/18 at 20:00 Ondansetron HCl (Zofran Inj) 4 mg Q6H PRN IV NAUSEA/VOMITING; Start 11/24/18 at 20:00 Acetaminophen (Tylenol Tab) 650 mg Q6H PRN PO .PAIN 1-3 OR TEMP; Start 11/24/18 at 20:00 Acetaminophen/ Hydrocodone Bitart ([place] (5/325)) 1 tab Q6H PRN PO .PAIN 4-6; Start 11/24/18 at 20:00 Diagnostic Test (Pha) (Accu-Chek) 1 ea 02 XX Last administered on 11/26/18at 03:00; Admin Dose 1 EA; Start 11/25/18 at 02:00 Miscellaneous Information 1 ea NOTE XX ; Start 11/24/18 at 20:00 Glucose (Glutose) 15 gm Q15M PRN PO DECREASED GLUCOSE; Start 11/24/18 at 20:00 Glucose (Glutose) 22.5 gm Q15M PRN PO DECREASED GLUCOSE; Start 11/24/18 at 20:00 Dextrose (D50w Syringe) 25 ml Q15M PRN IV DECREASED GLUCOSE; Start 11/24/18 at 20:00 Dextrose (D50w Syringe) 50 ml Q15M PRN IV DECREASED GLUCOSE; Start 11/24/18 at 20:00 Glucagon (Glucagen) 1 mg Q15M PRN IM DECREASED GLUCOSE; Start 11/24/18 at 20:00 Glucose (Glutose) 15 gm Q15M PRN BUCCAL DECREASED GLUCOSE; Start 11/24/18 at 20:00 Heparin Sodium (Porcine) (Heparin (5000 Units/1ml)) 5,000 unit BID SC Last administered on 11/29/18at 08:46; Admin Dose 5,000 UNIT; Start 11/25/18 at 21:00 Insulin Aspart (Novolog Insulin Pen) NOVOLOG *MILD* ALGORITHM WITH MEALS BEDTIM E SC Last administered on 11/29/18at 17:10; Admin Dose 2 UNIT; Start 11/25/18 at 12:00 Hydralazine HCl (Apresoline) 10 mg Q4H PRN IV sbp >160; Start 11/26/18 at 02:00 Trazodone HCl (Desyrel) 50 mg HS PRN PO insomnia Last administered on 11/26/18at 03:23; Admin Dose 50 MG; Start 11/26/18 at 02:00 Atorvastatin Calcium (Lipitor) 40 mg HS PO Last administered on 11/29/18at 22:06; Admin Dose 40 MG; Start 11/26/18 at 21:00 Nifedipine (Procardia Xl) 30 mg BID PO Last administered on 11/29/18at 08:40; Admin Dose 30 MG; Start 11/26/18 at 10:30 Sevelamer Carbonate (Renvela) 2,400 mg WITH MEALS PO Last administered on 11/29/18 17:03; Admin Dose 2,400 MG; Start 11/27/18 at 12:00 Aspirin (Halfprin) 81 mg DAILY PO Last administered on 11/29/18at 08:40; Admin Dose 81 MG; Start 11/27/18 at 09:30 Pantoprazole (Protonix Tab) 40 mg BID@0600,1800 PO Last administered on 11/29/18at 17:03; Admin Dose 40 MG; Start 11/27/18 at 18:00 Insulin Glargine (Lantus) 9 units DAILY@0800 SC ; Start 11/30/18 at 08:00 Senna/Docusate Sodium (Senokot-S) 2 tab HS PO Last administered on 11/29/18at 22:06; Admin Dose 2 TAB; Start 11/29/18 at 21:00 Carvedilol (Coreg) 3.125 mg BID PO ; Start 11/29/18 at 21:00 Insulin Aspart (Novolog Insulin Pen) 3 unit AC MEALS SC Last administered on 11/29/18at 17:10; Admin Dose 3 UNIT; Start 11/29/18 at 17:30 Heparin Sodium (Porcine) (Heparin (1000 Units/ml)) 2,800 unit ONCE CATHETER ; Start 11/29/18 at 20:00; Stop 11/29/18 at 23:00 DANE NG MD Nov 29, 2018 22:15
[2018-11-30] MEDS: ACCU-CHEK XX SCH (00:04)
[2018-11-30 02:00] VITALS: BP 133/64; PULSE 84; RESP 18
[2018-11-30] MEDS: PANTOPRAZOLE (EC) 40 MG TAB PO SCH ×2 (06:13→17:41)
[2018-11-30] MEDS: INSULIN ASPART [NOVOLOG] 3 ML PEN SC SCH ×7 (08:11→20:49)
[2018-11-30] MEDS: HEPARIN 5,000 UNIT/1 ML VIAL SC SCH ×2 (08:13→20:53)
[2018-11-30] MEDS: INSULIN GLARGINE [LANTus] (100 UNITS/ML) SYG SC SCH (08:13)
[2018-11-30] MEDS: ASPIRIN (EC) 81 MG TAB PO SCH (08:13)
[2018-11-30 08:30] VITALS: BP 133/61; PULSE 86; RESP 18
[2018-11-30] MEDS: NIFEdipine (XL) 30 MG TAB PO SCH ×2 (10:48→23:00)
--- NOTE | 2018-11-30 11:07 | PN ---
DATE: 11/30/2018 SUBJECTIVE: The patient is stable, had hemodialysis yesterday, tolerated well. The patient is more alert. No other events noted. OBJECTIVE: VITAL SIGNS: Blood pressure 133/64, respiration 18, pulse 84, temperature 98.8. HEENT: Head is normocephalic. NECK: Supple. HEART: Regular rate. LUNGS: Show diminished breath sounds at the base. ABDOMEN: Soft, nontender to palpation without rebound or guarding. EXTREMITIES: Negative for clubbing, cyanosis, no edema. DERMATOLOGIC: No rashes. MUSCULOSKELETAL: No joint effusions. NEUROLOGIC: No change in exam. MEDICATIONS: Reviewed. LABORATORY DATA: Shows sodium 137, potassium 3.8, chloride 96, BUN 15, creatinine 2.41, phosphorus 2 .0. White count 8.7, hemoglobin 10.1, platelet count is 220. ASSESSMENT AND PLAN: 1. Nonoliguric acute kidney injury on top of chronic kidney disease with unknown baseline creatinine . Etiology of acute kidney injury is unclear, possible progression of chronic kidney disease towards end-stage renal disease. The patient is status post 3 sessions of dialysis. At this point, will ho ld dialysis and monitor for any signs of renal recovery. We will also check serological workup. Mon itor closely. 2. Hypernatremia, improved. 3. Metabolic acidosis, improved. 4. Anemia. Monitor hemoglobin and hematocrit levels. Will continue Epogen as needed. 5. Mineral bone disorder. Continue to monitor calcium and phosphorus levels. 6. Uremia, improved. Continue to monitor. 7. Diabetes. Continue current insulin regimen. 8. Newly diagnosed breast cancer. Continue to monitor. Dictated By: LYNNE RHODES DO NR/NTS Conf#: [id number] DID#: [id number] CC: DANE NG MD; OLIVE ALBRECHT MD; DOMINGO ARRIOLA MD;*EndCC*
[2018-11-30 15:02] VITALS: BP 158/74; PULSE 95; RESP 18
--- NOTE | 2018-11-30 17:00 | PN ---
Date/Time of Note Date/Time of Note DATE: 11/30/18 TIME: 16:59 Assessment/Plan VTE Prophylaxis Risk score (from Ns)>0 risk: 9 SCD applied (from Ns): Yes SCD contraindicated: low risk/ambulating Pharmacological prophylaxis: heparin Lines/Catheters IV Catheter Type (from Nrs): Franck Cath Urinary Cath still in place: No Assessment/Plan Hospital Course A/P 1 ARF/ uremia; stable, cont HD. check hep panel; needs outpt HD arranged & permacath 2 Breast Ca 3 DM 10.0 4 Severe hyponatremia; stable 5 False Troponin 6 Deconditioning S: 11/29 no distress 11/30 no events O: vss PE no pallor/ jvd reg s1s2 no mrg ctab bs + nt nd; no rrg no edema Result Diagram: 11/30/186 11/30/18 0436 Results 24hrs Laboratory Tests Test 11/29/18 17:05 11/29/18 22:03 11/30/18 04:36 11/30/18 07:47 Bedside Glucose 202 125 White Blood Count 8.7 # Red Blood Count 3.11 L Hemoglobin 10.1 L Hematocrit 29.4 L Mean Corpuscular 94.5 Volume Mean Corpuscular 32.5 Hemoglobin Mean Corpuscular 34.4 Hemoglobin Concent Red Cell 12.4 Distribution Width Platelet Count 220 Mean Platelet Volume 9.9 Immature 0.300 Granulocytes % Neutrophils % 70.6 Lymphocytes % 18.6 Monocytes % 8.5 Eosinophils % 1.7 Basophils % 0.3 Nucleated Red Blood 0.0 Cells % Immature 0.030 Granulocytes # Neutrophils # 6.1 Lymphocytes # 1.6 Monocytes # 0.7 Eosinophils # 0.2 Basophils # 0.0 Nucleated Red Blood 0.0 Cells # Sodium Level 137 Potassium Level 3.8 Chloride Level 96 L Carbon Dioxide Level 30 Anion Gap 11 Blood Urea Nitrogen 15 Creatinine 2.41 #H Est Glomerular Filtrat Rate mL/min Glucose Level 193 Calcium Level 8.9 Phosphorus Level 2.0 #L Magnesium Level 1.8 Hepatitis B Surface NEGATIVE Antigen Hepatitis B Core NEGATIVE Total Antibody Hepatitis C Antibody NEGATIVE Rheumatoid Factor NEGATIVE Screen Complement C3 96 Complement C4 46 H Test 11/30/18 08:10 11/30/18 12:48 Bedside Glucose 209 109 Exam/Review of Systems Exam Vitals Vital Signs Date Temp Pulse Resp B/P (MAP) Pulse Ox O2 O2 Flow FiO2 Time Delivery Rate 11/30/18 98.3 95 18 158/74 95 15:02 (102) 11/29/18 Room Air 22:15 Intake and Output 11/29/18 11/29/18 11/30/18 1515:00 23:00 07:00 IntakeIntake Total 800 ml OutputOutput Total 1700 ml 400 ml BalanceBalance -900 ml -400 ml Results Results 24hrs Laboratory Tests Test 11/29/18 17:05 11/29/18 22:03 11/30/18 04:36 11/30/18 07:47 Bedside Glucose 202 125 White Blood Count 8.7 # Red Blood Count 3.11 L Hemoglobin 10.1 L Hematocrit 29.4 L Mean Corpuscular 94.5 Volume Mean Corpuscular 32.5 Hemoglobin Mean Corpuscular 34.4 Hemoglobin Concent Red Cell 12.4 Distribution Width Platelet Count 220 Mean Platelet Volume 9.9 Immature 0.300 Granulocytes % Neutrophils % 70.6 Lymphocytes % 18.6 Monocytes % 8.5 Eosinophils % 1.7 Basophils % 0.3 Nucleated Red Blood 0.0 Cells % Immature 0.030 Granulocytes # Neutrophils # 6.1 Lymphocytes # 1.6 Monocytes # 0.7 Eosinophils # 0.2 Basophils # 0.0 Nucleated Red Blood 0.0 Cells # Sodium Level 137 Potassium Level 3.8 Chloride Level 96 L Carbon Dioxide Level 30 Anion Gap 11 Blood Urea Nitrogen 15 Creatinine 2.41 #H Est Glomerular Filtrat Rate mL/min Glucose Level 193 Calcium Level 8.9 Phosphorus Level 2.0 #L Magnesium Level 1.8 Hepatitis B Surface NEGATIVE Antigen Hepatitis B Core NEGATIVE Total Antibody Hepatitis C Antibody NEGATIVE Rheumatoid Factor NEGATIVE Screen Complement C3 96 Complement C4 46 H Test 11/30/18 08:10 11/30/18 12:48 Bedside Glucose 209 109 Medications Medication Current Medications IV Flush (NS 3 ml) 3 ml PER PROTOCOL IV ; Start 11/24/18 at 20:00 Ondansetron HCl (Zofran Inj) 4 mg Q6H PRN IV NAUSEA/VOMITING; Start 11/24/18 at 20:00 Acetaminophen (Tylenol Tab) 650 mg Q6H PRN PO .PAIN 1-3 OR TEMP; Start 11/24/18 at 20:00 Acetaminophen/ Hydrocodone Bitart ([place] (5/325)) 1 tab Q6H PRN PO .PAIN 4-6; Start 11/24/18 at 20:00 Diagnostic Test (Pha) (Accu-Chek) 1 ea 02 XX Last administered on 11/26/18at 03:00; Admin Dose 1 EA; Start 11/25/18 at 02:00 Miscellaneous Information 1 ea NOTE XX ; Start 11/24/18 at 20:00 Glucose (Glutose) 15 gm Q15M PRN PO DECREASED GLUCOSE; Start 11/24/18 at 20:00 Glucose (Glutose) 22.5 gm Q15M PRN PO DECREASED GLUCOSE; Start 11/24/18 at 20:00 Dextrose (D50w Syringe) 25 ml Q15M PRN IV DECREASED GLUCOSE; Start 11/24/18 at 20:00 Dextrose (D50w Syringe) 50 ml Q15M PRN IV DECREASED GLUCOSE; Start 11/24/18 at 20:00 Glucagon (Glucagen) 1 mg Q15M PRN IM DECREASED GLUCOSE; Start 11/24/18 at 20:00 Glucose (Glutose) 15 gm Q15M PRN BUCCAL DECREASED GLUCOSE; Start 11/24/18 at 20:00 Heparin Sodium (Porcine) (Heparin (5000 Units/1ml)) 5,000 unit BID SC Last administered on 11/30/18at 08:13; Admin Dose 5,000 UNIT; Start 11/25/18 at 21:00 Insulin Aspart (Novolog Insulin Pen) NOVOLOG *MILD* ALGORITHM WITH MEALS BEDTIME SC Last administered on 11/30/18at 08:12; Admin Dose 2 UNIT; Start 11/25/18 at 12:00 Hydralazine HCl (Apresoline) 10 mg Q4H PRN IV sbp >160; Start 11/26/18 at 02:00 Trazodone HCl (Desyrel) 50 mg HS PRN PO insomnia Last administered on 11/26/18at 03:23; Admin Dose 50 MG; Start 11/26/18 at 02:00 Atorvastatin Calcium (Lipitor) 40 mg HS PO Last administered on 11/29/18at 22:06; Admin Dose 40 MG; Start 11/26/18 at 21:00 Nifedipine (Procardia Xl) 30 mg BID PO Last administered on 11/30/18at 10:48; Admin Dose 30 MG; Start 11/26/18 at 10:30 Sevelamer Carbonate (Renvela) 2,400 mg WITH MEALS PO Last administered on 11/29/18 17:03; Admin Dose 2,400 MG; Start 11/27/18 at 12:00; Status Hold Aspirin (Halfprin) 81 mg DAILY PO Last administered on 11/30/18at 08:13; Admin Dose 81 MG; Start 11/27/18 at 09:30 Pantoprazole (Protonix Tab) 40 mg BID@0600,1800 PO Last administered on 11/30/18at 06:13; Admin Dose 40 MG; Start 11/27/18 at 18:00 Insulin Glargine (Lantus) 9 units DAILY@0800 SC Last administered on 11/30/18 08:13; Admin Dose 9 UNITS; Start 11/30/18 at 08:00 Senna/Docusate Sodium (Senokot-S) 2 tab HS PO Last administered on 11/29/18 22:06; Admin Dose 2 TAB; Start 11/29/18 at 21:00 Carvedilol (Coreg) 3.125 mg BID PO Last administered on 11/30/18 08:14; Admin Dose 3.125 MG; Start 11/29/18 at 21:00 Insulin Aspart (Novolog Insulin Pen) 3 unit AC MEALS SC Last administered on 11/30/18at 12:51; Admin Dose 3 UNIT; Start 11/29/18 at 17:30 Heparin Sodium (Porcine) (Heparin (1000 Units/ml)) 2,600 unit ONCE CATHETER Last administered on 11/29/18at 22:55; Admin Dose 2,600 UNIT; Start 11/29/18 at 22:30; Stop 11/30/18 at 22:29 DANE NG MD Nov 30, 2018 17:00
[2018-11-30 20:41] VITALS: BP 174/79; PULSE 80; RESP 18
[2018-11-30] MEDS: ATORVASTATIN 80 MG TAB PO SCH (20:44)
[2018-11-30] MEDS: SENNA/DOCUSATE NA (8.6MG/50MG) TAB PO SCH (20:44)
[2018-12-01] VITALS (8 sets, daily range): BP systolic 120–136; BP diastolic 58–65; PULSE 63–83; RESP 17–18
[2018-12-01] MEDS: ACCU-CHEK XX SCH (02:00)
[2018-12-01] MEDS: PANTOPRAZOLE (EC) 40 MG TAB PO SCH ×2 (05:12→18:13)
--- NOTE | 2018-12-01 08:57 | PN ---
DATE: 12/01/2018 SUBJECTIVE: The patient is currently stable. No acute events happened overnight. Please note I spoke with the patient's granddaughter, Concetta, informing her that her mother will likel y need a long-term dialysis. The patient's granddaughter has agreed for a Perm-A-Cath placement and long-term outpatient dialysis. No other events noted. OBJECTIVE: VITAL SIGNS: Blood pressure is 126/58, respirations 17, pulse 79, temperature 98.7. HEENT: Head is normocephalic. NECK: Supple. HEART: Regular rate. LUNGS: Show diminished breath sounds at the base. ABDOMEN: Soft, nontender to palpation, rebound or guarding. EXTREMITIES: Negative for clubbing, cyanosis, no edema. DERMATOLOGIC: No rashes. MUSCULOSKELETAL: No joint effusion. NEUROLOGIC: No change in exam. MEDICATIONS: Reviewed. LABORATORY DATA: Shows sodium 133, potassium 3.5, BUN 31, creatinine 3.65. White count 11.9, hemogl obin 9.8, platelet count is 230. ASSESSMENT AND PLAN: 1. Possible nonoliguric acute kidney injury on top of chronic kidney disease with unknown baseline c reatinine. Etiology of acute kidney injury is unclear, possible progression of chronic kidney diseas e towards end-stage renal disease. The patient is currently dialysis dependent. There are no signs of renal recovery. Arranging for outpatient hemodialysis and a Perm-A-Cath placement. Will continue intermittent dialysis during the hospital course. 2. Hyponatremia, improved. 3. Metabolic acidosis, improved. 4. Anemia. Monitor hemoglobin and hematocrit levels. Continue Epogen. 5. Mineral bone disorder. Monitor calcium and phosphorus levels. 6. Anemia, improved. Continue intermittent dialysis. 7. Diabetes. Continue current insulin regimen. 8. Newly diagnosed breast cancer. Continue medical management. Dictated By: LYNNE RHODES DO NR/NTS Conf#: [id number] DID#: [id number] CC: OLIVE ALBRECHT MD;*EndCC*
[2018-12-01] MEDS: HEPARIN 5,000 UNIT/1 ML VIAL SC SCH ×3 (09:00→23:10)
[2018-12-01] MEDS: ASPIRIN (EC) 81 MG TAB PO SCH (09:00)
--- NOTE | 2018-12-01 10:01 | PN ---
Date/Time of Note Date/Time of Note DATE: 12/01/18 TIME: 10:00 Assessment/Plan VTE Prophylaxis Risk score (from Ns)>0 risk: 8 SCD applied (from Ns): Yes Pharmacological prophylaxis: heparin Lines/Catheters [facility]): ERMELINDA CATH Urinary Cath still in place: No Assessment/Plan Hospital Course SUBJECTIVE: Denies any complaints. OBJECTIVE: Physical Exam General: Adequately build 78 year-old female lying in bed in no apparent distress. HEENT: Normocephalic, atraumatic. Eyes: Anicteric sclerae, conjunctivae clear. ENT: Nasal septum midline, oral mucosa moist. Neck supple, no JVD noticed. Respiratory: Bilaterally clear breath sounds. No use of accessory muscles of respiration. No adventitious breath sounds. Cardiovascular: S1, S2 heard. Regular rate and rhythm. Abdomen: Soft, nontender, and nondistended. Bowel sounds positive in all 4 quadrants. Genitourinary: Deferred. Extremities: No cyanosis, no clubbing, no edema. Peripheral pulses palpable. Neurologic: Cranial nerves II through XII grossly intact. The patient is awake, alert, and oriented. Skin: Normal skin turgor. No skin rashes. Labs & Vitals per chart ASSESSMENT & PLAN 78-year-old female with comorbidities including diabetes mellitus type 2, hype rtension, dyslipidemia, and recently diagnosed left breast cancer. The patient was scheduled for a left breast surgery with . Meanwhile, the patient started nausea, vomiting, and abdominal cramps with acute kidney injury and severe hyponatremia along with elevated troponins in the emergency room. The patient was admitted to inpatient setting for further treatment and evaluation. 1. Acute kidney injury. -The patient was started on hemodialysis. -Etiology of worsening renal function could be contrast induced because of recent CT scan with IV dye. -The patient is getting a PermCath today. 2. Hyponatremia. -Most probably secondary to underlying BELA. -On free water restriction. -Improved. 3. Diabetes mellitus type 2 -Hemoglobin A1c 10.0. -Continue sliding scale insulin along with pre-meal insulin and basal insulin. 4. Essential hypertension. -Continue antihypertensives. 5. Dyslipidemia. -Continue statins. 6. Elevated troponins. -Falsely elevated troponins in the setting of underlying kidney injury. -Ejection fraction of 60%. 7. Anemia of chronic disease. -Monitor H&H closely. 8. Left breast cancer. -Surgical Intervention planned after the patient is medically clear. 9. Fluids, electrolytes, and nutrition. -Renal, carbohydrate controlled diet. 10. DVT prophylaxis -Subcutaneous heparin. 11. Plan. -Await PermCath placement. -Await clinical improvement. The patient was in collaboration with Dr. Hall. Result Diagram: 12/01/18 0433 12/01/18 0433 Results 24hrs Laboratory Tests Test 11/30/18 12:48 11/30/18 17:38 11/30/18 20:48 12/01/18 04:33 Bedside Glucose 109 105 136 White Blood Count 11.9 #H Red Blood Count 2.93 L Hemoglobin 9.8 L Hematocrit 27.9 L Mean Corpuscular 95.2 Volume Mean Corpuscular 33.4 H Hemoglobin Mean Corpuscular 35.1 Hemoglobin Concent Red Cell 12.3 Distribution Width Platelet Count 230 Mean Platelet Volume 9.7 Immature 0.600 H Granulocytes % Neutrophils % 69.8 Lymphocytes % 19.9 Monocytes % 8.6 Eosinophils % 0.8 Basophils % 0.3 Nucleated Red Blood 0.0 Cells % Immature 0.070 H Granulocytes # Neutrophils # 8.3 H Lymphocytes # 2.4 Monocytes # 1.0 H Eosinophils # 0.1 Basophils # 0.0 Nucleated Red Blood 0.0 Cells # Sodium Level 133 L Potassium Level 3.5 Chloride Level 93 L Carbon Dioxide Level 26 Anion Gap 14 H Blood Urea Nitrogen 31 #H Creatinine 3.65 #H Est Glomerular Filtrat Rate mL/min Glucose Level 188 Calcium Level 9.0 Phosphorus Level 2.8 Magnesium Level 1.7 Test 12/01/18 09:05 Bedside Glucose 214 Exam/Review of Systems Exam Vitals Vital Signs Date Temp Pulse Resp B/P (MAP) Pulse Ox O2 O2 Flow FiO2 Time Delivery Rate 12/01/18 98.7 79 17 126/58 96 07:30 (80) 12/01/18 Room Air 02:10 Intake and Output 11/30/18 11/30/18 12/01/18 1515:00 23:00 07:00 IntakeIntake Total 600 ml 560 ml 100 ml OutputOutput Total 750 ml BalanceBalance -150 ml 560 ml 100 ml Results Results 24hrs Laboratory Tests Test 11/30/18 12:48 11/30/18 17:38 11/30/18 20:48 12/01/18 04:33 Bedside Glucose 109 105 136 White Blood Count 11.9 #H Red Blood Count 2.93 L Hemoglobin 9.8 L Hematocrit 27.9 L Mean Corpuscular 95.2 Volume Mean Corpuscular 33.4 H Hemoglobin Mean Corpuscular 35.1 Hemoglobin Concent Red Cell 12.3 Distribution Width Platelet Count 230 Mean Platelet Volume 9.7 Immature 0.600 H Granulocytes % Neutrophils % 69.8 Lymphocytes % 19.9 Monocytes % 8.6 Eosinophils % 0.8 Basophils % 0.3 Nucleated Red Blood 0.0 Cells % Immature 0.070 H Granulocytes # Neutrophils # 8.3 H Lymphocytes # 2.4 Monocytes # 1.0 H Eosinophils # 0.1 Basophils # 0.0 Nucleated Red Blood 0.0 Cells # Sodium Level 133 L Potassium Level 3.5 Chloride Level 93 L Carbon Dioxide Level 26 Anion Gap 14 H Blood Urea Nitrogen 31 #H Creatinine 3.65 #H Est Glomerular Filtrat Rate mL/min Glucose Level 188 Calcium Level 9.0 Phosphorus Level 2.8 Magnesium Level 1.7 Test 12/01/18 09:05 Bedside Glucose 214 Medications Medication Current Medications IV Flush (NS 3 ml) 3 ml PER PROTOCOL IV ; Start 11/24/18 at 20:00 Ondansetron HCl (Zofran Inj) 4 mg Q6H PRN IV NAUSEA/VOMITING; Start 11/24/18 at 20:00 Acetaminophen (Tylenol Tab) 650 mg Q6H PRN PO .PAIN 1-3 OR TEMP; Start 11/24/18 at 20:00 Acetaminophen/ Hydrocodone Bitart ([place] (5/325)) 1 tab Q6H PRN PO .PAIN 4-6; Start 11/24/18 at 20:00 Diagnostic Test (Pha) (Accu-Chek) 1 ea 02 XX Last administered on 11/26/18at 03:00; Admin Dose 1 EA; Start 11/25/18 at 02:00 Miscellaneous Information 1 ea NOTE XX ; Start 11/24/18 at 20:00 Glucose (Glutose) 15 gm Q15M PRN PO DECREASED GLUCOSE; Start 11/24/18 at 20:00 Glucose (Glutose) 22.5 gm Q15M PRN PO DECREASED GLUCOSE; Start 11/24/18 at 20:00 Dextrose (D50w Syringe) 25 ml Q15M PRN IV DECREASED GLUCOSE; Start 11/24/18 at 20:00 Dextrose (D50w Syringe) 50 ml Q15M PRN IV DECREASED GLUCOSE; Start 11/24/18 at 20:00 Glucagon (Glucagen) 1 mg Q15M PRN IM DECREASED GLUCOSE; Start 11/24/18 at 20:00 Glucose (Glutose) 15 gm Q15M PRN BUCCAL DECREASED GLUCOSE; Start 11/24/18 at 20:00 Heparin Sodium (Porcine) (Heparin (5000 Units/1ml)) 5,000 unit BID SC Last administered on 11/30/18at 20:53; Admin Dose 5,000 UNIT; Start 11/25/18 at 21:00 Insulin Aspart (Novolog Insulin Pen) NOVOLOG *MILD* ALGORITHM WITH MEALS BEDTIME SC Last administered on 11/30/18 08:12; Admin Dose 2 UNIT; Start 11/25/18 at 12:00 Hydralazine HCl (Apresoline) 10 mg Q4H PRN IV sbp >160; Start 11/26/18 at 02:00 Trazodone HCl (Desyrel) 50 mg HS PRN PO insomnia Last administered on 11/26/18 03:23; Admin Dose 50 MG; Start 11/26/18 at 02:00 Atorvastatin Calcium (Lipitor) 40 mg HS PO Last administered on 11/30/18at 20:44; Admin Dose 40 MG; Start 11/26/18 at 21:00 Nifedipine (Procardia Xl) 30 mg BID PO Last administered on 11/30/18at 23:00; Admin Dose 30 MG; Start 11/26/18 at 10:30 Sevelamer Carbonate (Renvela) 2,400 mg WITH MEALS PO Last administered on 11/29/18 17:03; Admin Dose 2,400 MG; Start 11/27/18 at 12:00; Status Hold Aspirin (Halfprin) 81 mg DAILY PO Last administered on 11/30/18 08:13; Admin Dose 81 MG; Start 11/27/18 at 09:30 Pantoprazole (Protonix Tab) 40 mg BID@0600,1800 PO Last administered on 12/01/18at 05:12; Admin Dose 40 MG; Start 11/27/18 at 18:00 Insulin Glargine (Lantus) 9 units DAILY@0800 SC Last administered on 11/30/18at 08:13; Admin Dose 9 UNITS; Start 11/30/18 at 08:00 Senna/Docusate Sodium (Senokot-S) 2 tab HS PO Last administered on 11/30/18at 20:44; Admin Dose 2 TAB; Start 11/29/18 at 21:00 Carvedilol (Coreg) 3.125 mg BID PO Last administered on 12/01/18at 08:57; Admin Dose 3.125 MG; Start 11/29/18 at 21:00 Insulin Aspart (Novolog Insulin Pen) 3 unit AC MEALS SC Last administered on 11/30/18at 17:40; Admin Dose 3 UNIT; Start 11/29/18 at 17:30 SMILEY VAZQUEZ NP Dec 01, 2018 10:01
--- NOTE | 2018-12-01 10:09 | RADRPT ---
PROCEDURE: PLACEMENT OF RIGHT INTERNAL JUGULAR VENOUS TUNNELED DIALYSIS CATHETER. CLINICAL INDICATION: Renal failure. TECHNIQUE: Prior to the procedure, informed consent was obtained. Risks including bleeding, infection, and pneum othorax were explained to the patient. The patient understood and was willing to proceed. A procedura l pause was performed. The patient's name, date of , and procedure to be performed were verified . The central line was inserted with all elements of maximal sterile barrier technique. All of the fo llowing were used: head covering, facial mask, sterile gown, sterile gloves, a large sterile sheet, h and hygiene, and 2% chlorhexidine for cutaneous antisepsis. The right neck and anterior/superior ch est wall was prepped and draped in usual sterile fashion. Following the local injection of Xylocaine, a 0.035 in Amplatz guidewire was advanced through the exi sting temporary dialysis catheter. A 1 cm incision with a #11 blade scalpel was made at the site of the existing temporary dialysis catheter and blunt dissection was performed. A tunnel was then creat ed from the anterior lateral aspect of the superior right chest wall to the puncture site in the neck and the catheter was pulled through the tract. The existing temporary dialysis catheter was removed over the guidewire. Serial dilatation was then performed and a 16 [place] peel away sheath was intro duced. The 14.5 [place] 23cm long tip to cuff Angiodynamics BioFlo DuraMax dialysis catheter was adva nced through the 16 [place] peel-away sheath. The tip of the catheter was confirmed in position within the right atrium. The peel-away sheath was removed. The 2 ports were each flushed with 2.3 ml of 1: 1000 heparin. The catheter was secured to the skin with 2-0 silk. The wound in the neck was closed with 4-0 Vicryl suture using subcuticular running technique. The site was dressed. Specimens: None. Blood loss: 1 ml. Complications: None. Appliance [employer] Counter Clerk: None. Anesthesia: Local and moderate sedation. Graft/Implant: Tunneled dialysis catheter. COMPARISON: Images from placement of temporary dialysis catheter on 11/27/2018. FINDINGS: Final radiographic images demonstrate the tip of the catheter in the upper right atrium. A total of 0.1 minutes of fluoroscopy time was used. 4 images of the chest were obtained with image intensifie r. IMPRESSION: 1. Percutaneous insertion of right internal jugular dialysis tunneled dialysis catheter under fluoros copic guidance. RPTAT: QQ .Arie Hawthorne MD, Date Time Electronically viewed and signed by .Arie Hawthorne MD, on 12/01/2018 10:09 .R/
[2018-12-01] MEDS: NIFEdipine (XL) 30 MG TAB PO SCH ×2 (10:56→21:27)
[2018-12-01] MEDS: INSULIN ASPART [NOVOLOG] 3 ML PEN SC SCH ×7 (10:58→21:00)
[2018-12-01] MEDS: INSULIN GLARGINE [LANTus] (100 UNITS/ML) SYG SC SCH (11:00)
[2018-12-01] MEDS: ATORVASTATIN 80 MG TAB PO SCH (21:27)
[2018-12-01] MEDS: SENNA/DOCUSATE NA (8.6MG/50MG) TAB PO SCH (21:28)
[2018-12-02] VITALS (17 sets, daily range): BP systolic 105–135; BP diastolic 51–76; PULSE 60–78; RESP 18–20
[2018-12-02] MEDS: ACCU-CHEK XX SCH (02:00)
[2018-12-02] MEDS: PANTOPRAZOLE (EC) 40 MG TAB PO SCH ×2 (05:16→18:36)
[2018-12-02] MEDS ORDERED: INSULIN GLARGINE [LANTus] (100 UNITS/ML) SYG SC SCH (08:00)
[2018-12-02] MEDS ORDERED: POTASSIUM CHLORIDE (SR) 20 MEQ TAB PO STA (08:02)
--- NOTE | 2018-12-02 08:47 | PN ---
DATE: 12/02/2018 SUBJECTIVE: The patient is stable, had Perm-A-Cath placed yesterday. The patient is pending hemodia lysis today. OBJECTIVE: VITAL SIGNS: Blood pressure is 120/60, pulse 70, respirations 18, temperature 98.6. HEENT: Head is normocephalic. NECK: Supple. HEART: Regular rate. LUNGS: Show diminished breath sounds at the base. ABDOMEN: Soft, nontender to palpation without rebound or guarding. EXTREMITIES: Negative for clubbing, cyanosis, no edema. DERMATOLOGIC: No rashes. MUSCULOSKELETAL: No joint effusion. NEUROLOGIC: No change in exam. MEDICATIONS: The patient's medications have been reviewed. LABORATORY DATA: Reviewed. ASSESSMENT AND PLAN: 1. 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 The patient is currently dialysis dependent, without any signs of recovery. The patient is status post Perm-A-Cath placement. Plan is for dialysis today. 2. Hypokalemia. We will replete with potassium chloride. Continue dialysis on a high potassium bat h. 3. Anemia. Monitor hemoglobin and hematocrit levels. We will give Epogen as needed. 4. Mineral bone disorder, monitor calcium and phosphorus levels. 5. Diabetes. Continue current insulin regimen. 6. Breast cancer. Continue medical management. Follow up with oncology in outpatient setting. DISPOSITION: The patient is pending outpatient hemodialysis to be arranged by family caseworker at [facility]. Dictated By: LYNNE RHODES DO NR/NTS Conf#: [id number] DID#: [id number] CC: DOMINGO ARRIOLA MD; DANE NG MD; OLIVE ALBRECHT MD;*EndCC*
[2018-12-02] MEDS: INSULIN ASPART [NOVOLOG] 3 ML PEN SC SCH ×6 (08:53→17:55)
[2018-12-02] MEDS: HEPARIN 5,000 UNIT/1 ML VIAL SC SCH (08:54)
[2018-12-02] MEDS: NIFEdipine (XL) 30 MG TAB PO SCH (09:22)
[2018-12-02] MEDS: ASPIRIN (EC) 81 MG TAB PO SCH (09:22)
--- NOTE | 2018-12-02 09:33 | PN ---
Date/Time of Note Date/Time of Note DATE: 12/02/18 TIME: 09:30 Assessment/Plan VTE Prophylaxis Risk score (from Ns)>0 risk: 8 SCD applied (from Ns): Yes Pharmacological prophylaxis: heparin Lines/Catheters IV [facility]from [facility]): ERMELINDA CATH Urinary Cath still in place: No Assessment/Plan Result Diagram: 12/02/18 0459 12/02/18 0459 Results 24hrs Laboratory Tests Test 12/01/18 10:40 12/01/18 13:09 12/01/18 18:04 12/01/18 21:23 Bedside Glucose 220 378 H 229 H 144 Test 12/02/18 04:59 12/02/18 08:35 White Blood Count 9.9 Red Blood Count 2.92 L Hemoglobin 9.5 L Hematocrit 27.7 L Mean Corpuscular 94.9 Volume Mean Corpuscular 32.5 Hemoglobin Mean Corpuscular 34.3 Hemoglobin Concent Red Cell 12.4 Distribution Width Platelet Count 248 Mean Platelet Volume 10.1 Immature 0.600 H Granulocytes % Neutrophils % 67.3 Lymphocytes % 20.9 Monocytes % 9.1 Eosinophils % 1.9 Basophils % 0.2 Nucleated Red Blood 0.0 Cells % Immature 0.060 H Granulocytes # Neutrophils # 6.7 Lymphocytes # 2.1 Monocytes # 0.9 Eosinophils # 0.2 Basophils # 0.0 Nucleated Red Blood 0.0 Cells # Sodium Level 134 L Potassium Level 3.3 L Chloride Level 97 Carbon Dioxide Level 28 Anion Gap 9 # Blood Urea Nitrogen 47 #H Creatinine 4.14 H Est Glomerular Filtrat Rate mL/min Glucose Level 157 Calcium Level 9.3 Phosphorus Level 3.9 Magnesium Level 1.8 Bedside Glucose 181 Exam/Review of Systems Exam Vitals Vital Signs Date Temp Pulse Resp B/P (MAP) Pulse Ox O2 O2 Flow FiO2 Time Delivery Rate 12/02/18 98.6 70 18 120/60 96 Room Air 07:34 (80) Intake and Output 12/01/18 12/01/18 12/02/18 1515:00 23:00 07:00 IntakeIntake Total 400 ml 50 ml 390 ml OutputOutput Total 600 ml BalanceBalance 400 ml 50 ml -210 ml Results Results 24hrs Laboratory Tests Test 12/01/18 10:40 12/01/18 13:09 12/01/18 18:04 12/01/18 21:23 Bedside Glucose 220 378 H 229 H 144 Test 12/02/18 04:59 12/02/18 08:35 White Blood Count 9.9 Red Blood Count 2.92 L Hemoglobin 9.5 L Hematocrit 27.7 L Mean Corpuscular 94.9 Volume Mean Corpuscular 32.5 Hemoglobin Mean Corpuscular 34.3 Hemoglobin Concent Red Cell 12.4 Distribution Width Platelet Count 248 Mean Platelet Volume 10.1 Immature 0.600 H Granulocytes % Neutrophils % 67.3 Lymphocytes % 20.9 Monocytes % 9.1 Eosinophils % 1.9 Basophils % 0.2 Nucleated Red Blood 0.0 Cells % Immature 0.060 H Granulocytes # Neutrophils # 6.7 Lymphocytes # 2.1 Monocytes # 0.9 Eosinophils # 0.2 Basophils # 0.0 Nucleated Red Blood 0.0 Cells # Sodium Level 134 L Potassium Level 3.3 L Chloride Level 97 Carbon Dioxide Level 28 Anion Gap 9 # Blood Urea Nitrogen 47 #H Creatinine 4.14 H Est Glomerular Filtrat Rate mL/min Glucose Level 157 Calcium Level 9.3 Phosphorus Level 3.9 Magnesium Level 1.8 Bedside Glucose 181 Medications Medication Current Medications IV Flush (NS 3 ml) 3 ml PER PROTOCOL IV ; Start 11/24/18 at 20:00 Ondansetron HCl (Zofran Inj) 4 mg Q6H PRN IV NAUSEA/VOMITING; Start 11/24/18 at 20:00 Acetaminophen (Tylenol Tab) 650 mg Q6H PRN PO .PAIN 1-3 OR TEMP; Start 11/24/18 at 20:00 Acetaminophen/ Hydrocodone Bitart ([place] (5/325)) 1 tab Q6H PRN PO .PAIN 4-6; Start 11/24/18 at 20:00 Diagnostic Test (Pha) (Accu-Chek) 1 ea 02 XX Last administered on 11/26/18at 03:00; Admin Dose 1 EA; Start 11/25/18 at 02:00 Miscellaneous Information 1 ea NOTE XX ; Start 11/24/18 at 20:00 Glucose (Glutose) 15 gm Q15M PRN PO DECREASED GLUCOSE; Start 11/24/18 at 20:00 Glucose (Glutose) 22.5 gm Q15M PRN PO DECREASED GLUCOSE; Start 11/24/18 at 20:00 Dextrose (D50w Syringe) 25 ml Q15M PRN IV DECREASED GLUCOSE; Start 11/24/18 at 20:00 Dextrose (D50w Syringe) 50 ml Q15M PRN IV DECREASED GLUCOSE; Start 11/24/18 at 20:00 Glucagon (Glucagen) 1 mg Q15M PRN IM DECREASED GLUCOSE; Start 11/24/18 at 20:00 Glucose (Glutose) 15 gm Q15M PRN BUCCAL DECREASED GLUCOSE; Start 11/24/18 at 20:00 Heparin Sodium (Porcine) (Heparin (5000 Units/1ml)) 5,000 unit BID SC Last administered on 12/02/18 08:54; Admin Dose 5,000 UNIT; Start 11/25/18 at 21:00 Insulin Aspart (Novolog Insulin Pen) NOVOLOG *MILD* ALGORITHM WITH MEALS BED TIME SC Last administered on 12/02/18 08:54; Admin Dose 2 UNIT; Start 11/25/18 at 12:00 Hydralazine HCl (Apresoline) 10 mg Q4H PRN IV sbp >160; Start 11/26/18 at 02:00 Trazodone HCl (Desyrel) 50 mg HS PRN PO insomnia Last administered on 11/26/18 03:23; Admin Dose 50 MG; Start 11/26/18 at 02:00 Atorvastatin Calcium (Lipitor) 40 mg HS PO Last administered on 12/01/18 21:27; Admin Dose 40 MG; Start 11/26/18 at 21:00 Nifedipine (Procardia Xl) 30 mg BID PO Last administered on 12/02/18 09:22; Admin Dose 30 MG; Start 11/26/18 at 10:30 Sevelamer Carbonate (Renvela) 2,400 mg WITH MEALS PO Last administered on 11/29/18 17:03; Admin Dose 2,400 MG; Start 11/27/18 at 12:00; Status Hold Aspirin (Halfprin) 81 mg DAILY PO Last administered on 12/02/18 09:22; Admin Dose 81 MG; Start 11/27/18 at 09:30 Pantoprazole (Protonix Tab) 40 mg BID@0600,1800 PO Last administered on 12/02/18 05:16; Admin Dose 40 MG; Start 11/27/18 at 18:00 Senna/Docusate Sodium (Senokot-S) 2 tab HS PO Last administered on 12/01/18 21:28; Admin Dose 2 TAB; Start 11/29/18 at 21:00 Carvedilol (Coreg) 3.125 mg BID PO Last administered on 12/02/18 09:22; Admin Dose 3.125 MG; Start 11/29/18 at 21:00 Insulin Aspart (Novolog Insulin Pen) 4 unit AC MEALS SC Last administered on 12/02/18 08:53; Admin Dose 4 UNIT; Start 12/01/18 at 17:25 Insulin Glargine (Lantus) 10 units DAILY@0800 SC Last administered on 12/02/18 08:52; Admin Dose 10 UNITS; Start 12/02/18 at 08:00 SMILEY VAZQUEZ NP Dec 02, 2018 09:33
--- NOTE | 2018-12-02 14:58 | HPN ---
Date/Time of Note Date/Time of Note DATE: 12/02/18 TIME: 14:58 Interval H&P Admission Note Pt. seen H&P reviewed: No system changes LANDON SALAS MD Dec 02, 2018 14:58
[2018-12-02] MEDS ORDERED: HEPARIN 1000 UNITS/ML 10 ML INJ CATHETER SCH (16:00)
[2018-12-02] MEDS ORDERED: NIFE30TA2 PO (16:24)
[2018-12-02] MEDS ORDERED: GLIP5TAB13 PO (16:24)
[2018-12-02] MEDS ORDERED: CARV3.1260 PO (16:24)
[2018-12-02] MEDS ORDERED: REPA1TAB14 PO (16:24)
[2018-12-02] MEDS ORDERED: ATOR-2 PO (16:24)
--- NOTE | 2018-12-02 16:28 | PDOCDIS ---
Discharge Instructions CONDITION [id number] Patient Condition: [id number] Stable HOME CARE INSTRUCTIONS: [id number] Special Diet: [id number] Renal/Carbohydrate controlled FOLLOW UP/APPOINTMENTS Follow-up Plan Ivan Florez DO Specialty: Nephrology Office Address [id number] [place] [address] Office OTHER ORDERS: Other Orders: 1. Take medications as per prescription. Stop taking metformin. Instead take glipizide and Prandin for diabetes. 2. Stop taking losartan-high blood pressure. Instead start taking Coreg and nifedipine. 3. Take a carbohydrate controlled, renal diet. 4. Follow-up with Dr. Florez as scheduled. 5. Follow-up with Dr. Batista as scheduled. 6. Please follow-up with your hemodialysis clinic as scheduled. SMILEY VAZQUEZ NP Dec 02, 2018 16:28
--- NOTE | 2018-12-02 19:46 | DS ---
Date/Time of Note Date/Time of Note DATE: 12/02/18 TIME: 19:46 Discharge Summary Admission/Discharge Info Admit Date/Time Nov 24, 2018 at 17:46 Discharge Date/Time Discharge Diagnosis 1. Acute kidney injury. Newly started on hemodialysis. 2. Hyponatremia. 3. Diabetes mellitus type 2. Hemoglobin A1c 10.0. 4. Essential hypertension. 5. Dyslipidemia. 6. NSTEMI 7. Anemia of chronic disease. 8. Left breast cancer. Patient Condition: Stable Consults 1. Ivan Florez DO, Nephrology. 2. Alcides Marinelli MD, Cardiology. Procedures Placement of Right Internal Jugular Venous Temporary Dialysis Catheter IMPRESSION: 1. Satisfactory insertion of right internal jugular vein temporary dialysis catheter with ultrasound and fluoroscopic guidance. 2D Echocardiogram Conclusions: Normal left ventricular systolic function. Normal left ventricular cavity size. Normal left ventricular wall thickness. Ejection fraction is visually estimated at 60 %. Tissue Doppler/Mitral Doppler indices are consistent with impaired relaxation (Stage I diastolic dysfunction). Mild mitral annular calcification. Mild mitral valve regurgitation. No significant aortic stenosis or insufficiency. Aortic cusps appear mildly calcified. Normal appearance of the tricuspid valve. Estimated peak PA systolic pressure 25 mmHg. There is trace tricuspid regurgitation. CT Abdomen and Pelvis IMPRESSION: 1. The pancreas is unremarkable without findings to suggest acute pancreatitis. 2. Increased attenuation within the gallbladder lumen, bowel prep compatible with vicarious excretion of contrast media without evidence for cholecystitis. 3. Abnormal changes of the left breast parenchyma concerning for primary breast neoplasm. 4. Mild left renal atrophy with heterogeneous attenuation of the renal parenchyma unable to exclude pyelonephritis with perinephric inflammatory stranding but no evidence of abscess. Consider urinalysis correlation if not already performed. 5. Urinary bladder contracted around a Dos Santos catheter and unable to be evaluated. 6. Minimal diverticular disease of the colon without diverticulitis. 7. Diffuse atherosclerotic calcification of the aorta and iliac systems. 8. 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 Hx of Present Illness This is a 78-year-old female with comorbidities including diabetes mellitus type 2, hypertension, dyslipidemia, and recently diagnosed left breast cancer. The patient was scheduled for a left breast surgery with . Meanwhile, the p atient started nausea, vomiting, and abdominal cramps with acute kidney injury and severe hyponatremia along with elevated troponins in the emergency room. The patient was admitted to inpatient setting for further treatment and evaluation. Hospital Course The patient was noticed to have underlying acute kidney injury. Therefore, a nephrology consult was obtained. The patient had evidence of significant renal impairment including metabolic acidosis and uremia. Therefore, the patient was started on emergent hemodialysis. The patient had a PermCath placed on 12/01/2018. Etiology of the patient's acute kidney injury could be contrast induced because of a recent CT scan with IV dye use. The patient was also noted to have hyponatremia. This could be most probably secondary to underlying acute kidney injury. The patient's hyponatremia improved with free water restriction. Patient was also noticed to have elevated troponins. The patient was evaluated by cardiology. Patient's 2D echocardiogram showed preserved left ventricular ejection fraction. The patient's troponins were falsely elevated in the setting of underlying kidney injury. The patient's chronic problems include diabetes mellitus type 2. The patient's hemoglobin A1c was found to be 10.0. The patient was maintained on sliding scale insulin along with pre-meal insulin and basal insulin. Upon discharge, she will be started on sulfonylurea and premeal meglitinides. The patient's metformin will be discontinued. The patient was taking losartan at home. This was switched to Coreg and nifedipine by cardiology. The patient has underlying chronic anemia. The patient's H&H remained stable. The patient was recently diagnosed with left breast cancer. The patient was being evaluated for surgical intervention of the left breast. Because of the patient's current acute problem, the patient's surgical intervention was postponed until the patient is medically stable to undergo any kind of surgery. The patient was newly started on hemodialysis. Case management was able to arrange outpatient hemodialysis set up. Therefore, the patient will be discharged home, to be followed up with outpatient hemodialysis clinic. Discharge Instructions 1. Take medications as per prescription. Stop taking metformin. Instead take glipizide and Prandin for diabetes. 2. Stop taking losartan-high blood pressure. Instead start taking Coreg and nifedipine. 3. Take a carbohydrate controlled, renal diet. 4. Follow-up with Dr. Florez as scheduled. 5. Follow-up with Dr. Batista as scheduled. 6. Please follow-up with your hemodialysis clinic as scheduled. The patient's family verbalized understanding of the discharge instructions. At this time I would like to thank all the consultants for seeing the patient and providing clinical recommendations. The patient was seen in collaboration with Dr. Hall. Home Meds Active Scripts Repaglinide* (Prandin*) 1 Mg Tablet, 1 MG PO AC MEALS, #90 TAB Prov:SMILEY VAZQUEZ FRONT END SPECIALIST 12/02/18 Glipizide* (Glipizide*) 5 Mg Tablet, 5 MG PO AC BREAKFAST, #30 TAB Prov:LEOBHAVANASMILEY FRONT END SPECIALIST 12/02/18 Nifedipine (Procardia Xl) 30 Mg Tab.er.24, 30 MG PO BID, #60 TAB Prov:GEORGESMILEY FRONT END SPECIALIST 12/02/18 Carvedilol* (Carvedilol*) 3.125 Mg Tablet, 3.125 MG PO BID, #60 TAB Prov:LEOBHAVANASMILEY FRONT END SPECIALIST 12/02/18 Atorvastatin* (Atorvastatin*) 80 Mg Tablet, 40 MG PO HS, #30 TAB Prov:SMILYE VAZQUEZ FRONT END SPECIALIST 12/02/18 Discontinued Reported Medications Losartan Potassium* (Losartan Potassium*) 100 Mg Tablet, 100 MG PO DAILY, TAB 11/24/18 Metformin Hcl* (Metformin Hcl*) 850 Mg Tablet, 850 MG PO WITH BREAKFAST DINNE, #60 TAB 11/24/18 Follow-up Plan Ivan Florez DO Specialty: Nephrology Office Address [address] [place] [address] [address] [place] [address] Office Primary Care Provider Care Physician No Primary Time spent on discharge: > 30 minutes Pending Labs Laboratory Tests Test 12/01/18 21:23 12/02/18 04:59 12/02/18 08:35 12/02/18 12:45 Bedside 144 181 246 Glucose mg/dL (70-220) mg/dL (70-220) mg/dL (70-220) White Blood 9.9 Count 10^3/ul (4.8-1 0.8) Red Blood 2.92 Count 10^6/ul (4.20- 5.40) Hemoglobin 9.5 g/dl (12.0-16. 0) Hematocrit 27.7 % (37.0-47.0) Mean 94.9 Corpuscular fl (82.0-101.0 Volume ) Mean 32.5 Corpuscular pg (29.0-33.0) Hemoglobin Mean 34.3 Corpuscular g/dl (32.0-37. Hemoglobin Conc 0) ent Red Cell 12.4 Distribution % (11.5-14.5) Width Platelet Count 248 10^3/UL (140-4 15) Mean Platelet 10.1 Volume fl (7.4-10.4) Immature 0.600 Granulocytes % % (0.001-0.429 ) Neutrophils % 67.3 % (39.0-77.0) Lymphocytes % 20.9 % (15.0-51.0) Monocytes % 9.1 % (0.0-11.0) Eosinophils % 1.9 % (0.0-7.0) Basophils % 0.2 % (0.0-2.0) Nucleated Red 0.0 Blood Cells % /100WBC (0.0-0 .0) Immature 0.060 Granulocytes # 10^3/ul (0.0-0 .031) Neutrophils # 6.7 10^3/ul (1.6-7 .5) Lymphocytes # 2.1 10^3/ul (0.8-2 .9) Monocytes # 0.9 10^3/ul (0.3-0 .9) Eosinophils # 0.2 10^3/ul (0.0-0 .5) Basophils # 0.0 10^3/ul (0.0-0 .1) Nucleated Red 0.0 Blood Cells # 10^3/ul (0.0-0 .0) Sodium Level 134 mmol/L (135-14 4) Potassium 3.3 Level mmol/L (3.5-5. 1) Chloride Level 97 mmol/L (97-110 ) Carbon Dioxide 28 Level mmol/L (21-31) Anion Gap 9 (5-13) Blood Urea 47 Nitrogen mg/dl (7-20) Creatinine 4.14 mg/dl (0.44-1. 00) Est Glomerular mL/min (>60) Filtrat Rate mL/min Glucose Level 157 mg/dl (70-220) Calcium Level 9.3 mg/dl (8.4-10. 2) Phosphorus 3.9 Level mg/dl (2.5-4.9 ) Magnesium 1.8 Level mg/dl (1.7-2.5 ) Test 12/02/18 17:50 Bedside 130 Glucose mg/dL (70-220) SMILEY VAZQUEZ NP Dec 02, 2018 19:46
== END 2018-12-02 19:40 | disposition home or self-care (01) | DRG 673 ==
LOC: E/R 11:21 → 6WM 17:46 → MS1 11-29 23:05
PROVIDERS: ADMIT Internal Medicine; ATTEND Internal Medicine
PROC: 4A033R1 Measurement of Arterial Saturation, Peripheral, Percutaneous Approach (ICD-10-PCS; 2018-11-26)
PROC: B543ZZA Ultrasonography of Right Jugular Veins, Guidance (ICD-10-PCS; 2018-11-27)
PROC: 02H633Z Insertion of Infusion Device into Right Atrium, Percutaneous Approach (ICD-10-PCS; 2018-11-27)
PROC: B214YZZ Fluoroscopy of Right Heart using Other Contrast (ICD-10-PCS; 2018-11-27)
PROC: 02PA33Z Removal of Infusion Device from Heart, Percutaneous Approach (ICD-10-PCS; 2018-12-01)
PROC: 02H633Z Insertion of Infusion Device into Right Atrium, Percutaneous Approach (ICD-10-PCS; 2018-12-01)
PROC: 0JH63XZ Insertion of Tunneled Vascular Access Device into Chest Subcutaneous Tissue and Fascia, Percutaneous Approach (ICD-10-PCS; principal; 2018-12-01 09:30)
PROC: 5A1D70Z Performance of Urinary Filtration, Intermittent, Less than 6 Hours Per Day (ICD-10-PCS; 2018-12-02)
DX: N17.9 Acute kidney failure, unspecified (principal); I21.4 Non-ST elevation (NSTEMI) myocardial infarction; E87.1 Hypo-osmolality and hyponatremia; E87.2 Acidosis; G93.40 Encephalopathy, unspecified; E86.0 Dehydration; N14.4 Toxic nephropathy, not elsewhere classified; C50.912 Malignant neoplasm of unspecified site of left female breast; E87.5 Hyperkalemia; E11.22 Type 2 diabetes mellitus with diabetic chronic kidney disease; I12.9 Hypertensive chronic kidney disease with stage 1 through stage 4 chronic kidney disease, or unspecified chronic kidney disease; N18.9 Chronic kidney disease, unspecified; E83.42 Hypomagnesemia; D63.8 Anemia in other chronic diseases classified elsewhere; E78.00 Pure hypercholesterolemia, unspecified; Z79.84 Long term (current) use of oral hypoglycemic drugs; Z90.49 Acquired absence of other specified parts of digestive tract
CPT/HCPCS: 36415; 36556; 36600; 71045; 74176; 76775; 76942; 80048; 80053; 80061; 81001; 81003; 82043; 82270; 82550; 82553; 82595; 82803; 82962; 83036; 83690; 83735; 84100; 84155; 84300; 84484; 85014; 85018; 85025; 85610; 85730; 86021; 86038; 86160; 86226; 86430; 86704; 86706; 86709; 86803; 87340; 90686; 90935; 93005; 93306; 96374; 97110; 97161; 97530; C1752; C9113; J1644; J1815; J2405; J3475; J7030; J7040

== ENCOUNTER 2019-03-28 12:11 | Emergency (ER) | payer MEDICAID, OTHER ==
[~2019-03-28] VITALS: Ht 152.4 cm; Wt 54.0 kg
[~2019-03-28 12:11] MED LIST: ATOR-2 PO; CARV3.1260 PO; GLIP5TAB13 PO; NIFE30TA2 PO; REPA1TAB14 PO
[2019-03-28 12:16] VITALS: Ht 152.4 cm; Wt 54.0 kg
[2019-03-28] MEDS ORDERED: SULF1TAB31 PO (12:45)
[2019-03-28] MEDS ORDERED: CEPH-443 PO (12:45)
[2019-03-28] MEDS ORDERED: IBUP-1542 PO (12:46)
--- NOTE | 2019-03-28 13:16 | ERD ---
ER Documentation Chief Complaint Chief Complaint sent by pmd for eval of painful scalp mass h/o breast ca , on dialysis HPI Patient is a 78-year-old female with breast cancer and diabetes who presents with right scalp redness. The patient had some pus expressed from some of the "bumps". The patient has been worsening over the past few days. The patient has had no treatment as of yet. The patient has pain when laying on that side of the head. Upon review of old medical records this is the patient's fourth visit to the ER since November 2018. The patient was sent from the [facility] today after being seen by the nurse practitioner for further evaluation. ROS All systems reviewed and are negative except as per history of present illness. Medications Home Meds Active Scripts Ibuprofen* (Motrin*) 600 Mg Tab, 600 MG PO Q6H PRN for PAIN AND OR ELEVATED TEMP, #30 TAB Prov:HAILY BATES MD 03/28/19 Cephalexin* (Keflex*) 500 Mg Capsule, 500 MG PO QID for 7 Days, CAP Prov:HAILY BTAES MD 03/28/19 Sulfamethoxazole/Trimethoprim* (Bactrim Ds* Tablet) 1 Each Tablet, 1 TAB PO BID, #14 TAB Prov:HAILY BATES MD 03/28/19 Repaglinide* (Prandin*) 1 Mg Tablet, 1 MG PO AC MEALS, #90 TAB Prov:SMILEY VAZQUEZ EMERGENCY ROOM NURSE 12/02/18 Glipizide* (Glipizide*) 5 Mg Tablet, 5 MG PO AC BREAKFAST, #30 TAB Prov:SMILEY VAZQUEZ EMERGENCY ROOM NURSE 12/02/18 Nifedipine (Procardia Xl) 30 Mg Tab.er.24, 30 MG PO BID, #60 TAB Prov:SMILEY VAZQUEZ EMERGENCY ROOM NURSE 12/02/18 Carvedilol* (Carvedilol*) 3.125 Mg Tablet, 3.125 MG PO BID, #60 TAB Prov:SMILEY VAZQUEZ EMERGENCY ROOM NURSE 12/02/18 Atorvastatin* (Atorvastatin*) 80 Mg Tablet, 40 MG PO HS, #30 TAB Prov:SMILEY VAZQUEZ NP 12/02/18 Allergies Allergies: Coded Allergies: No Known Allergy (Unverified , 11/24/18) PMhx/Soc History of Surgery: Yes (cholecystectomy) Anesthesia Reaction: No Hx Neurological Disorder: No Hx Respiratory Disorders: No Hx Cardiac Disorders: Yes (HTN) Hx Psychiatric Problems: No Hx Miscellaneous Medical Probl: Yes (Breast CA, [id number]) Hx Alcohol Use: No Hx Substance Use: No Hx Tobacco Use: No Smoking Status: Never smoker FmHx Family History: diabetes Physical Exam Vitals Vital Signs Date Temp Pulse Resp B/P (MAP) Pulse Ox O2 O2 Flow FiO2 Time Delivery Rate 03/28/19 98.1 76 18 147/81 100 12:16 (103) Physical Exam Const: No acute distress Head: Atraumatic Eyes: Normal Conjunctiva ENT: Normal External Ears, Nose and Mouth. Neck: Full range of motion. No meningismus. Resp: Clear to auscultation bilaterally Cardio: Regular rate and rhythm, no murmurs Abd: Soft, non tender, non distended. Normal bowel sounds Skin: Folliculitis to the right scalp without fluctuance or abscess formation Back: No midline or flank tenderness Ext: No cyanosis, or edema Neur: Awake and alert Psych: Normal Mood and Affect Procedures/MDM Patient is a 78-year-old female who presents with what appears to be acute right scalp folliculitis. The patient is afebrile and is otherwise well-appearing. I see no sign of abscess that requires incision and drainage at this time. The p atient will be discharged with a prescription for Keflex and Bactrim. The patient should follow-up with the primary doctor within 48 hours for reevaluation. Departure Diagnosis: Primary Impression: Folliculitis Condition: Fair Patient Instructions: Folliculitis Referrals: Your doctor at [facility] Additional Instructions: Llame al doctor dyan coulter (Referral Sources) MAANA y hui clarissa LUCY PARA DENTRO DE CLARISSA SEMANA. Dgale a la secretaria que nosotros le instruimos hacer esta lucy.Avise o llame si ravi condicin se empeora antes de la lucy. HAILY BATES MD Mar 28, 2019 13:16
== END 2019-03-28 12:56 | disposition home or self-care (01) ==
LOC: E/R 12:11
DX: L73.8 Other specified follicular disorders (principal); I12.0 Hypertensive chronic kidney disease with stage 5 chronic kidney disease or end stage renal disease; N18.6 End stage renal disease; E11.22 Type 2 diabetes mellitus with diabetic chronic kidney disease; Z79.84 Long term (current) use of oral hypoglycemic drugs; Z85.3 Personal history of malignant neoplasm of breast; Z99.2 Dependence on renal dialysis
CPT/HCPCS: 99283

== ENCOUNTER 2019-06-18 09:50 | Day surgery (SDC) | payer MEDICAID, OTHER ==
[2019-06-18] VITALS (25 sets, daily range): BP systolic 146–189; BP diastolic 63–90; PULSE 78–114; RESP 8–20; Ht 149.9 cm; Wt 58.3 kg
[~2019-06-18] VITALS: Ht 149.9 cm; Wt 58.3 kg
[~2019-06-18 09:50] MED LIST changes: +CEFAZOLIN 1 GM/50 ML (PMX) 50 ML IVPB ONE; +CEFAZOLIN 2 GM/50 ML (PMX) 50 ML IVPB SCH; +CEPH-443 PO; +IBUP-1542 PO; +INSU100I33 SC; +NEPH PO; +SOD CHLORIDE 0.9% 1,000 ML IV SCH; +SULF1TAB31 PO
[2019-06-18] MEDS ORDERED: METOCLOPRAMIDE 10 MG INJ ONE (13:15)
[2019-06-18] MEDS ORDERED: FENTAnyl 50 MCG/ML VIAL ONE (13:15)
[2019-06-18] MEDS ORDERED: PROPOFOL 20 ML ONE (13:15)
[2019-06-18] MEDS ORDERED: ONDANSETRON 4 MG INJ ONE (13:16)
[2019-06-18] MEDS ORDERED: CEFAZOLIN 1 GM INJ ONE (13:16)
[2019-06-18] MEDS ORDERED: DIPHENHYDRAMINE 50 MG INJ IV PRN (13:30)
[2019-06-18] MEDS ORDERED: ONDANSETRON 4 MG INJ IV PRN ×2 (13:30→14:30)
[2019-06-18] MEDS ORDERED: OXYCODONE/ACETAMINOPHEN (5/325) TAB PO PRN (13:30)
[2019-06-18] MEDS ORDERED: MEPERIDINE 25 MG INJ IV PRN (13:30)
[2019-06-18] MEDS ORDERED: FENTAnyl 50 MCG/ML VIAL IV PRN ×2 (13:30)
[2019-06-18] MEDS ORDERED: HYDROmorphONE 1 MG/5 ML IV SYRINGE IV PRN ×3 (13:30)
[2019-06-18] MEDS ORDERED: D5W-0.45 NACL + KCL 20 MEQ 1,000 ML IV SCH (14:23)
[2019-06-18] MEDS ORDERED: morphine 2 MG INJ IV PRN (14:30)
[2019-06-18] MEDS ORDERED: ACETAMINOPHEN 1000MG/100ML IV 100 ML IVPB PRN (14:30)
[2019-06-18] MEDS: FENTAnyl 50 MCG/ML VIAL IV PRN ×2 (14:48→15:29)
[2019-06-18] MEDS ORDERED: hydrALAzine 20 MG INJ ONE (14:58)
[2019-06-18] MEDS: hydrALAzine 20 MG INJ IV PRN ×2 (14:59→15:12)
[2019-06-18] MEDS ORDERED: DEXTROSE 50% 50 ML SYRINGE IV PRN ×2 (18:30)
[2019-06-18] MEDS ORDERED: GLUCOSE GEL 15 GRAM TUBE PO PRN ×2 (18:30)
[2019-06-18] MEDS ORDERED: GLUCAGON 1 MG INJ IM PRN (18:30)
[2019-06-18] MEDS ORDERED: GLUCOSE GEL 15 GRAM TUBE BUCCAL PRN (18:30)
[2019-06-18] MEDS: INSULIN ASPART [NOVOLOG] 3 ML PEN SC SCH (21:00)
[2019-06-18] MEDS: ATORVASTATIN 80 MG TAB PO SCH (22:03)
[2019-06-18] MEDS: INSULIN GLARGINE [LANTus] (100 UNITS/ML) SYG SC SCH (22:43)
[2019-06-18] MEDS ORDERED: INSULIN ASPART [NOVOLOG] 3 ML PEN SC ONE (23:00)
[2019-06-18] MEDS ORDERED: ACCU-CHEK XX ONE (23:00)
[2019-06-18] MEDS: NIFEdipine (XL) 30 MG TAB PO SCH (23:56)
[2019-06-19] VITALS (20 sets, daily range): BP systolic 77–177; BP diastolic 44–80; PULSE 80–98; RESP 16–20
[2019-06-19] MEDS: ACCU-CHEK XX SCH (02:00)
[2019-06-19] MEDS ORDERED: 1/2 NS + KCL 20 MEQ 1,000 ML IV SCH (02:30)
[2019-06-19] MEDS ORDERED: glipiZIDE 5 MG TAB PO SCH (07:00)
[2019-06-19] MEDS: INSULIN ASPART [NOVOLOG] 3 ML PEN SC SCH ×5 (08:15→20:42)
[2019-06-19] MEDS: NIFEdipine (XL) 30 MG TAB PO SCH ×2 (09:20→20:31)
[2019-06-19] MEDS ORDERED: INSULIN ASPART [NOVOLOG] 3 ML PEN SC ONE (14:30)
[2019-06-19] MEDS ORDERED: ACCU-CHEK XX ONE (14:30)
[2019-06-19] MEDS: ATORVASTATIN 80 MG TAB PO SCH (20:30)
[2019-06-19] MEDS: INSULIN GLARGINE [LANTus] (100 UNITS/ML) SYG SC SCH (20:43)
[2019-06-19] MEDS ORDERED: MINERAL OIL 30ML CUP PO SCH (21:00)
[2019-06-20 02:00] VITALS: BP 111/56; PULSE 75; RESP 18
[2019-06-20] MEDS: ACCU-CHEK XX SCH (02:00)
[2019-06-20] MEDS: INSULIN ASPART [NOVOLOG] 3 ML PEN SC SCH ×6 (08:06→17:48)
[2019-06-20 08:37] VITALS: BP 117/58; PULSE 77; RESP 18
[2019-06-20] MEDS: NIFEdipine (XL) 30 MG TAB PO SCH (08:49)
[2019-06-20 15:03] VITALS: BP 116/58; PULSE 74; RESP 20
== END 2019-06-20 18:45 | disposition home or self-care (01) ==
LOC: SDS 09:50 → UNDOADMIN 14:25 → REC 14:25 → 2NE 14:38 → REC 16:30 → SDS 06-20 18:45
PROVIDERS: ATTEND Surgery Surgical Oncology
DX: C50.912 Malignant neoplasm of unspecified site of left female breast (principal); C77.3 Secondary and unspecified malignant neoplasm of axilla and upper limb lymph nodes; I12.0 Hypertensive chronic kidney disease with stage 5 chronic kidney disease or end stage renal disease; N18.6 End stage renal disease; Z99.2 Dependence on renal dialysis; E11.9 Type 2 diabetes mellitus without complications
CPT/HCPCS: 19260; 80048; 80053; 82947; 82962; 85025; 85610; 85730; 87340; 88307; 90935; J0360; J0690; J1815; J2405; J2765; J3010; J3480; Z7512; Z7610